=== PATIENT | male | born 1985 | race Caucasian/White ===

== ENCOUNTER 2017-05-16 10:02 | Inpatient (IN) | payer OTHER ==
[2017-05-16 10:45] VITALS: BMI 23.2
--- NOTE | 2017-05-16 13:32 | HP ---
CIWA Score - CIWA Score Nausea/Vomitin-Mild Nausea/No Vomiting Muscle Tremors: 4-Moderate,w/Arms Extend Anxiety: 4-Mod. Anxious/Guarded Agitation: 4-Moderately Restless Paroxysmal Sweats: 1-Minimal Palms Moist Orientation: 1-Uncertain about Date Tacttile Disturbances: 1-Very Mild Itch/Numbness Auditory Disturbances: 0-None Visual Disturbances: 0-None Headache: 2-Mild CIWA-Ar Total Score: 18 Admission ROS S - HPI Chief Complaint: withdrawal sx Allergies/Adverse Reactions: Allergies Allergy/AdvReac Type Severity Reaction Status Date / Time haloperidol [From Haldol] Allergy Severe Difficulty Verified 05/16/17 12:16 Breathing phenytoin [From Dilantin] Allergy Severe Difficulty Verified 05/16/17 12:16 Breathing History of Present Illness: 31 years old male with long history of alcohol nicotine dependence has seizure and bipolar ii is admitted to detox Exam Limitations: No Limitations - Ebola screening Have you traveled outside of the country in the last 21 days: No Have you had contact with anyone from an Ebola affected area: No Have you been sick,other than usual withdrawal symptoms: No Do you have a fever: No - Review of Systems Constitutional: Loss of Appetite, Changes in sleep, Unintentional Wgt. Loss, Unexplained wgt Loss EENT: reports: No Symptoms Reported Respiratory: reports: No Symptoms reported Cardiac: reports: No Symptoms Reported GI: reports: Nausea, Poor Appetite, Poor Fluid Intake, Abdominal cramping : reports: No Symptoms Reported Musculoskeletal: reports: No Symptoms Reported Integumentary: reports: No Symptoms Reported Neuro: reports: Seizure (since child last seizure a week ago), Tremors Endocrine: reports: No Symptoms Reported Hematology: reports: No Symptoms Reported Psychiatric: reports: Judgement Intact, Anxious, Depressed Other Systems: Reviewed and Negative Patient History - Patient Medical History Hx Anemia: No Hx Asthma: No Hx Chronic Obstructive Pulmonary Disease (COPD): No Hx Cancer: No Hx Cardiac Disorders: No Hx Congestive Heart Failure: No Hx Hypertension: No Hx Hypercholesterolemia: No Hx Pacemaker: No HX Cerebrovascular Accident: No Hx Seizures: Yes (alcohol related-last episode was a week ago) Hx Dementia: No Hx Diabetes: No Hx Gastrointestinal Disorders: No Hx Liver Disease: No Hx Genitourinary Disorders: No Hx Sexually Transmitted Disorders: No Hx Renal Disease (ESRD): No Hx Thyroid Disease: No Hx Human Immunodeficiency Virus (HIV): No Hx Hepatitis C: Yes Hx Depression: No Hx Suicide Attempt: Yes (cut left wrist at age 13) Hx Bipolar Disorder: Yes Hx Schizophrenia: No - Patient Surgical History Past Surgical History: No Hx Neurologic Surgery: No Hx Cataract Extraction: No Hx Cardiac Surgery: No Hx Lung Surgery: No Hx Breast Surgery: No Hx Breast Biopsy: No Hx Abdominal Surgery: No Hx Appendectomy: No Hx Cholecystectomy: No Hx Genitourinary Surgery: No Hx Orthopedic Surgery: No - PPD History Previous Implant?: Yes Documented Results: Negative w/o proof Implanted On Prior [facility] Admission?: No PPD to be Administered?: Yes - Smoking Cessation Smoking history: Current every day smoker Have you smoked in the past 12 months: Yes Aproximately how many cigarettes per day: 3 Cigars Per Day: 0 Hx Chewing Tobacco Use: No Initiated information on smoking cessation: Yes 'Breaking Loose' booklet given: 05/16/17 - Substance & Tx. History Hx Alcohol Use: Yes Hx Substance Use: No Hx Substance Use Treatment: Yes (2015) - Substances Abused Alcohol-vodka Route: Oral Frequency: Daily Amount used: 3 pts. Age of first use: 13 Date of Last Use: 05/16/17 Admission Physical Exam BHS - Vital Signs Vital Signs: Vital Signs - 24 hr 05/16/17 10:43 Temperature 97 F L Pulse Rate 106 H Respiratory 20 Rate Blood Pressure 144/69 - Physical General Appearance: Yes: Appropriately Dressed, Moderate Distress, Alcohol on Breath, Thin, Tremorous, Irritable, Sweating, Anxious HEENTM: Yes: Hearing grossly Normal, Normal ENT Inspection, Normocephalic, Normal Voice Respiratory: Yes: Chest Non-Tender, Lungs Clear, Normal Breath Sounds, No Respiratory Distress, No Accessory Muscle Use Neck: Yes: Supple, Trachea in good position Breast: Yes: Breasts Symetrical, No Discharge Cardiology: Yes: Regular Rhythm, S1, S2, Tachycardia Abdominal: Yes: Normal Bowel Sounds, Non Tender, Soft Genitourinary: Yes: Within Normal Limits Back: Yes: Normal Inspection Musculoskeletal: Yes: full range of Motion, Gait Steady Extremities: Yes: Normal Inspection, Normal Range of Motion, Non-Tender, Tremors Neurological: Yes: Alert, Motor Strength 5/5, Normal Response, Depressed Affect Integumentary: Yes: Warm Lymphatic: Yes: Within Normal Limits - Diagnostic (1) Alcohol dependence with uncomplicated withdrawal Current Visit: Yes Status: Acute (2) Encounter for monitoring Suboxone maintenance therapy Current Visit: Yes Status: Chronic Comment: 8 mg in am 6 mg in hs (3) Hepatitis C Current Visit: Yes Status: Chronic Qualifiers: Viral hepatitis chronicity: carrier Qualified Code(s): B18.2 - Chronic viral hepatitis C (4) Weight loss Current Visit: Yes Status: Acute (5) Seizure Current Visit: Yes Status: Chronic (6) Bipolar II disorder Current Visit: Yes Status: Suspected (7) Nicotine dependence Current Visit: Yes Status: Acute Qualifiers: Nicotine product type: cigarettes Substance use status: in withdrawal Qualified Code(s): F17.213 - Nicotine dependence, cigarettes, with withdrawal Cleared for Admission [facility] - Detox or Rehab [facility] Level of Care: Medically Managed Detox Regimen/Protocol: Valium S Breath Alcohol Content Breath Alcohol Content: 0.297 Urine Drug Screen - Results Drug Screen Negative: Yes
[2017-05-16] MEDS ORDERED: IBUPROFEN 400 MG TABLET (FP) PO PRN (13:40)
[2017-05-16] MEDS ORDERED: MAG HYDROX/AL HYDROX/SIMETH 30 ML UNIT-DOSE CUP PO PRN (13:40)
[2017-05-16] MEDS ORDERED: NICOTINE 14 MG/24 HOURS TOPICAL PATCH TD PRN (13:40)
[2017-05-16] MEDS ORDERED: P-EPHED 60MG/TRIPROLIDI 2.5MG TABLET PO PRN (13:40)
[2017-05-16] MEDS ORDERED: NICOTINE POLACRILEX 2 MG GUM BUC PRN (13:40)
[2017-05-16] MEDS ORDERED: MENTHOL/PHENOL 1 EACH UD MM PRN (13:40)
[2017-05-16] MEDS ORDERED: LOPERAMIDE HCL 2 MG CAPSULE PO PRN (13:40)
[2017-05-16] MEDS ORDERED: guaiFENesin/D-METHORPHAN HB 10 ML UNIT-DOSE CUPS PO PRN (13:40)
[2017-05-16] MEDS ORDERED: ACETAMINOPHEN 325 MG TABLET (FP) PO PRN (13:40)
[2017-05-16] MEDS ORDERED: MAGNESIUM HYDROX 2400MG/30ML ORAL SUSPENSION 30 ML CUP PO PRN (13:40)
[2017-05-16] MEDS ORDERED: MAGNESIUM CITRATE 300 ML BOTTLE PO PRN (13:40)
[2017-05-16] MEDS ORDERED: diazePAM 5 MG TABLET PO ONE (14:45)
--- NOTE | 2017-05-16 16:56 | CONSULT ---
[facility] Psychiatric Consult - Data Date of interview: 05/16/17 Admission source: [facility] Identifying data: Pt. is a 40 year old male, engaged, without kids, unemployed, and currently homeless. This is patient's first admission to [facility]. Pt. admitted to detox for alcohol dependence. Substance Abuse History: Following information confirmed with Mr. Mosher: Smoking Cessation. Smoking history: Current every day smoker. Have you smoked in the past 12 months: Yes. Aproximately how many cigarettes per day: 3. Cigars Per Day: 0. Hx Chewing Tobacco Use: No. Initiated information on smoking cessation: Yes. 'Breaking Loose' booklet given: 05/16/17. - Substance & Tx. History. Hx Alcohol Use: Yes. Hx Substance Use: No. Hx Substance Use Treatment: Yes (2016). - Substances Abused. Alcohol-vodka. Route: Oral. Frequency: Daily. Amount used: 3 pts. Age of first use: 13. Date of Last Use : 05/16/17 Medical History: Seizures ( last years r/t ETOH) Psychiatric History: Patient's first encounter with a psychiatrist was at 11 years of age due to behavior problems. Pt. reports multiple psychiatric hospitalizations as an adult, most recently hospitalized at [facility] on 05/2017 for binge drinking as a suicide attempt. Pt. has also been hospitalized at [facility] (2017). Outpatient care is provided by [facility] in [place], [place]. Reports a diagnosis of Bipolar disorder and is prescribed Lexapro 10mg PO daily + gapabentin 600mg BID(for mood and seizures). Pt. reports several suicide attempts all by binge drinking. Pt. denies suicidal and homicidal ideation. Physical/Sexual Abuse/Trauma History: Denies. Mental Status Exam - Mental Status Exam Alert and Oriented to: Time, Place, Person Cognitive Function: Good Patient Appearance: Well Groomed Mood: Hopeful Affect: Appropriate Patient Behavior: Cooperative Speech Pattern: Appropriate Voice Loudness: Normal Thought Process: Goal Oriented Thought Disorder: Not Present Hallucinations: Denies Suicidal Ideation: Denies Homicidal Ideation: Denies Insight/Judgement: Poor Sleep: Poorly Appetite: Fair Muscle strength/Tone: Normal Gait/Station: Normal Psychiatric Findings - Problem List ([place] 1, 2,3) (1) Insomnia Current Visit: Yes Status: Acute (2) Alcohol dependence with uncomplicated withdrawal Current Visit: Yes Status: Acute (3) Substance induced mood disorder Current Visit: Yes Status: Acute (4) Bipolar II disorder Current Visit: No Status: Suspected Comment: Reports history of Bipolar disorder. - Initial Treatment Plan Initial Treatment Plan: Psychoeducation provided. Detoxification provided. Lexapro 10mg PO daily + Ambien 10mg qhs prn ordered for insomnia. Benefits and side effects (sleep walking) discussed. Verbal consent given. Will continue to monitor.
[2017-05-16 17:17] LABS: URINE APPEARANCE CLEAR; URINE BILIRUBIN NEGATIVE (NEGATIVE); URINE BLOOD NEGATIVE (NEGATIVE); URINE COLOR STRAW; URINE GLUCOSE (UA) NEGATIVE (NEGATIVE); URINE KETONE NEGATIVE (NEGATIVE); URINE LEUK ESTERASE NEGATIVE (NEGATIVE); URINE NITRITE NEGATIVE (NEGATIVE); URINE PROTEIN NEGATIVE (NEGATIVE); URINE UROBILINOGEN NEGATIVE mg/dL (0.2-1.0)
[2017-05-16] MEDS: diazePAM 5 MG TABLET PO PRN (17:18)
[2017-05-16] MEDS: diazePAM 5 MG TABLET PO SCH (22:32)
[2017-05-16] MEDS: ZOLPIDEM TARTRATE 10 MG TABLET (PARK CARE ONLY) PO PRN (22:32)
[2017-05-16] MEDS: GABAPENTIN 300 MG CAPSULE (FP) PO SCH (22:32)
[2017-05-16] MEDS: THIAMINE HCL 100 MG TABLET (FP) PO SCH (22:32)
[2017-05-16] MEDS: BUPRENORPHINE/NALOXONE 2 MG/0.5 MG FILM PACKET SL SCH (22:33)
[2017-05-17] MEDS: diazePAM 5 MG TABLET PO SCH ×3 (05:51→22:43)
[2017-05-17] MEDS ORDERED: BUPRENORPHINE/NALOXONE 8 MG/2 MG FILM PACKET SL SCH (10:00)
[2017-05-17] MEDS ORDERED: BUPRENORPHINE/NALOXONE 2 MG/0.5 MG FILM PACKET SL SCH (10:00)
[2017-05-17 10:13] LABS: HEMATOCRIT 39.5 % (35.4-49); MCHC 32.8 g/dl (32.0-35.9); MEAN CELL VOLUME 91.3 fl (80-96); MEAN PLT VOLUME 8.2 fl (7.5-11.1); PLATELET COUNT 243 K/MM3 (134-434); RBC 4.32 M/mm3 (4.00-5.60); RDW 15.7 % (11.9-15.9); WHITE BLOOD COUNT 4.4 K/mm3 (4.0-10.0)
[2017-05-17 10:21] LABS: ALBUMIN 3.8 g/dl (3.4-5.0); ALK PHOS 84 U/L (45-117); ANION GAP 9 (8-16); BILIRUBIN,TOTAL 0.4 mg/dL (0.2-1.0); BLOOD UREA NITROGEN 8 mg/dL (7-18); CALCIUM 8.1 mg/dL (8.5-10.1); CHLORIDE 111 mmol/L (98-107); CO2 25 mmol/L (21-32); CREATININE 0.6 mg/dL (0.7-1.3); GLUCOSE,RANDOM 97 mg/dL (74-106); SGOT/AST 42 U/L (15-37); SGPT/ALT 41 U/L (12-78); SODIUM 145 mmol/L (136-145); TOT PROT 7.5 g/dl (6.4-8.2)
[2017-05-17] MEDS: diazePAM 5 MG TABLET PO PRN (10:32)
[2017-05-17] MEDS: PRENATAL VITAMINS W/ FOLIC ACID TABLET (FP) PO SCH (10:33)
[2017-05-17] MEDS: ESCITALOPRAM OXALATE 10 MG TABLET (FP) PO SCH (10:33)
[2017-05-17] MEDS: GABAPENTIN 300 MG CAPSULE (FP) PO SCH ×2 (10:33→22:43)
[2017-05-17] MEDS: BUPRENORPHINE/NALOXONE 8 MG/2 MG FILM PACKET SL SCH (10:36)
[2017-05-17] MEDS ORDERED: COLLOIDAL OATMEAL 1 BAR EACH TP PRN (10:46)
--- NOTE | 2017-05-17 10:47 | HP ---
CIWA Score - CIWA Score Nausea/Vomitin-Mild Nausea/No Vomiting Muscle Tremors: 4-Moderate,w/Arms Extend Anxiety: 4-Mod. Anxious/Guarded Agitation: 4-Moderately Restless Paroxysmal Sweats: 1-Minimal Palms Moist Orientation: 1-Uncertain about Date Tacttile Disturbances: 1-Very Mild Itch/Numbness Auditory Disturbances: 0-None Visual Disturbances: 0-None Headache: 2-Mild CIWA-Ar Total Score: 18 Admission ROS BHS - HPI Allergies/Adverse Reactions: Allergies Allergy/AdvReac Type Severity Reaction Status Date / Time haloperidol [From Haldol] Allergy Severe Difficulty Verified 05/16/17 12:16 Breathing phenytoin [From Dilantin] Allergy Severe Difficulty Verified 05/16/17 12:16 Breathing - Ebola screening Have you traveled outside of the country in the last 21 days: No Have you had contact with anyone from an Ebola affected area: No Have you been sick,other than usual withdrawal symptoms: No Do you have a fever: No - Review of Systems Respiratory: reports: No Symptoms reported. denies: See HPI GI: reports: No Symptoms Reported, See HPI, Abdominal Distended, Abd. Pain w/ defecation, Blood Streaked Bowels, Constipated, Diarrhea, Difficulty Swallowing , Nausea, Poor Appetite, Poor Fluid Intake, Rectal Bleeding, Vomiting, Indigestion, Abdominal cramping, Tarry Stools, Other : reports: No Symptoms Reported, See HPI, Burning, Dysuria, Discharge, Frequency, Flank Pain, Hematuria, Incontinence, Pain, Testicular Swelling, Lesions, Testicular Pain, Other. denies: Urgency, Testicular Mass Musculoskeletal: denies: No Symptoms Reported, See HPI, Back Pain, Gout, Joint Pain, Joint Swelling, Muscle Pain, Muscle Weakness, Neck Pain, Joint Stiffness, Other Neuro: reports: No Symptoms reported (mj n i), Headache Patient History - Patient Medical History Hx Anemia: No Hx Asthma: No Hx Chronic Obstructive Pulmonary Disease (COPD): No Hx Cancer: No Hx Cardiac Disorders: No Hx Congestive Heart Failure: No Hx Hypertension: No Hx Hypercholesterolemia: No Hx Pacemaker: No HX Cerebrovascular Accident: No Hx Seizures: Yes (alcohol related-last episode was a week ago) Hx Dementia: No Hx Diabetes: No Hx Gastrointestinal Disorders: No Hx Liver Disease: No Hx Genitourinary Disorders: No Hx Sexually Transmitted Disorders: No Hx Renal Disease (ESRD): No Hx Thyroid Disease: No Hx Human Immunodeficiency Virus (HIV): No Hx Hepatitis C: Yes Hx Depression: No Hx Suicide Attempt: Yes (cut left wrist at age 13) Hx Bipolar Disorder: Yes Hx Schizophrenia: No - Patient Surgical History Past Surgical History: No Hx Neurologic Surgery: No Hx Cataract Extraction: No Hx Cardiac Surgery: No Hx Lung Surgery: No Hx Breast Surgery: No Hx Breast Biopsy: No Hx Abdominal Surgery: No Hx Appendectomy: No Hx Cholecystectomy: No Hx Genitourinary Surgery: No Hx Section: No Hx Orthopedic Surgery: No Anesthesia Reaction: No - PPD History Previous Implant?: Yes Documented Results: Negative w/o proof Implanted On Prior [facility] Admission?: No Date: 05/18/17 - Smoking Cessation Smoking history: Current every day smoker Have you smoked in the past 12 months: Yes Aproximately how many cigarettes per day: 3 Cigars Per Day: 0 Hx Chewing Tobacco Use: No Initiated information on smoking cessation: Yes - Substances Abused Alcohol-vodka Route: Oral Frequency: Daily Amount used: 3 pts. Age of first use: 13 Date of Last Use: 05/16/17 Admission Physical Exam BHS - Vital Signs Vital Signs: Vital Signs - 24 hr 05/16/17 05/16/17 05/16/17 10:43 15:58 16:00 Temperature 97 F L Pulse Rate 106 H 99 H 99 H Respiratory 20 18 18 Rate Blood Pressure 144/69 05/16/17 05/16/17 05/17/17 18:05 23:20 00:30 Temperature 98.1 F 98.6 F Pulse Rate 115 H 113 H Respiratory 18 18 18 Rate Blood Pressure 104/61 125/81 05/17/17 05/17/17 05/17/17 01:00 01:30 02:00 Temperature Pulse Rate 103 H 101 H 100 H Respiratory 20 21 20 Rate Blood Pressure 05/17/17 05/17/17 05/17/17 02:30 03:00 03:30 Temperature Pulse Rate 102 H 104 H 102 H Respiratory 20 20 17 Rate Blood Pressure 05/17/17 05/17/17 05/17/17 04:00 04:30 05:00 Temperature Pulse Rate 97 H 91 H 86 Respiratory 19 18 19 Rate Blood Pressure 05/17/17 05/17/17 05/17/17 05:30 06:00 06:25 Temperature 97.0 F L Pulse Rate 82 79 82 Respiratory 18 19 Rate Blood Pressure 106/65 05/17/17 05/17/17 05/17/17 06:30 09:00 09:30 Temperature Pulse Rate 80 100 H 96 H Respiratory 18 18 Rate Blood Pressure 05/17/17 05/17/17 09:31 10:00 Temperature 98 F Pulse Rate 96 H 95 H Respiratory 18 18 Rate Blood Pressure 133/85 BHS Breath Alcohol Content Breath Alcohol Content: 0.267 Urine Drug Screen - Results Drug Screen Negative: Yes
--- NOTE | 2017-05-17 13:00 | PN ---
[facility] Progress Note Note: Psychiatry Attending's note : Asked for re-consult. By PILO Reeves. Concern : Auditory hallucinations. Met with patient. " Surprised " to be engaged by psychiatrist. " I am fine. I have nothing to discuss with psychiatrits." Mr Mosher declines psychiatric intervention.
--- NOTE | 2017-05-17 14:53 | PN ---
[facility] CIWA - CIWA Score Nausea/Vomitin-No Nausea/No Vomiting Muscle Tremors: 3 Anxiety: 4-Mod. Anxious/Guarded Agitation: 3 Paroxysmal Sweats: 3 Orientation: 0-Oriented Tacttile Disturbances: 3-Moderate Itch/Numb/Burn Auditory Disturbances: 0-None Visual Disturbances: 2-Mild Sensitivity Headache: 0-None Present CIWA-Ar Total Score: 18 BHS Progress Note (SOAP) Subjective: Fatigue, Body Aches, Tremors, Sweating. Objective: PATIENT A & O X 3, OBSERVED AMBULATING ON UNIT. NO ACUTE DISTRESS. PATIENT REPORTS HISTORY OF "HEARING VOICES," WHEN DETOXING/WITHDRAWING. HOWEVER , PATIENT DENIES COMMAND AUDITORY HALLUCINATIONS. PSYCH CONSULT ORDERED. 05/17/17 14:49 Vital Signs Temperature 98.2 F 05/17/17 13:18 Pulse Rate 95 H 05/17/17 13:18 Respiratory Rate 18 05/17/17 13:18 Blood Pressure 145/86 05/17/17 13:18 O2 Sat by Pulse Oximetry (%) Laboratory Tests 05/16/17 05/16/17 05/17/17 12:00 14:00 06:00 WBC 4.4 RBC 4.32 Hgb 13.0 Hct 39.5 MCV 91.3 MCH 30.0 MCHC 32.8 RDW 15.7 Plt Count 243 MPV 8.2 Sodium Potassium Chloride Carbon Dioxide Anion Gap BUN Creatinine Creat Clearance w eGFR Random Glucose Calcium Total Bilirubin AST ALT Alkaline Phosphatase Total Protein Albumin Urine Color Straw Urine Appearance Clear Urine pH 5.0 Ur Specific [place] 1.012 Urine Protein Negative Urine Glucose (UA) Negative Urine Ketones Negative Urine Blood Negative Urine Nitrite Negative Urine Bilirubin Negative Urine Urobilinogen Negative Ur Leukocyte Esterase Negative RPR Titer HIV 1&2 Antibody Screen Negative HIV P24 Antigen Negative 05/17/17 05/17/17 06:00 06:00 WBC RBC Hgb Hct MCV MCH MCHC RDW Plt Count MPV Sodium 145 Potassium 4.0 Chloride 111 H Carbon Dioxide 25 Anion Gap 9 BUN 8 Creatinine 0.6 L Creat Clearance w eGFR > 60 Random Glucose 97 Calcium 8.1 L Total Bilirubin 0.4 AST 42 H ALT 41 Alkaline Phosphatase 84 Total Protein 7.5 Albumin 3.8 Urine Color Urine Appearance Urine pH Ur Specific [place] Urine Protein Urine Glucose (UA) Urine Ketones Urine Blood Urine Nitrite Urine Bilirubin Urine Urobilinogen Ur Leukocyte Esterase RPR Titer Nonreactive HIV 1&2 Antibody Screen HIV P24 Antigen LABS NOTED. 05/17/17 14:50 Assessment: 05/17/17 14:49 WITHDRAWAL SYMPTOMS. Plan: CONTINUE DETOX. INCREASE DAILY PO FLUID INTAKE. PATIENT ADVISED TO FOLLOW-UP WITH [facility]PER AT '[facility]' ([facility] [place] [place]) AFTER DISCHARGE FROM DETOX AND FOR MEDICAL EVALUATION OF HISTORY OF SEIZURES. PATIENT VERBALIZED UNDERSTANDING OF RECOMMENDATION.
--- NOTE | 2017-05-17 15:13 | EKG ---
Test Reason : Blood Pressure : / mmHG Vent. Rate : 099 BPM Atrial Rate : 099 BPM P-R Int : 142 ms QRS Dur : 092 ms QT Int : 332 ms P-R-T Axes : 052 064 040 degrees QTc Int : 426 ms NORMAL SINUS RHYTHM NORMAL ECG NO PREVIOUS ECGS AVAILABLE Confirmed by GRAHAM MOTT MD ([id number]) on 05/17/2017 3:12:27 PM Referred By: Confirmed By:GRAHAM MOTT MD
[2017-05-17] MEDS: THIAMINE HCL 100 MG TABLET (FP) PO SCH (22:43)
[2017-05-17] MEDS: BUPRENORPHINE/NALOXONE 2 MG/0.5 MG FILM PACKET SL SCH (22:44)
[2017-05-17] MEDS: ZOLPIDEM TARTRATE 10 MG TABLET (PARK CARE ONLY) PO PRN (22:47)
[2017-05-18] MEDS: diazePAM 5 MG TABLET PO PRN (08:32)
[2017-05-18] MEDS: diazePAM 5 MG TABLET PO SCH ×2 (10:11→22:19)
[2017-05-18] MEDS: ESCITALOPRAM OXALATE 10 MG TABLET (FP) PO SCH (10:11)
[2017-05-18] MEDS: PRENATAL VITAMINS W/ FOLIC ACID TABLET (FP) PO SCH (10:11)
[2017-05-18] MEDS: GABAPENTIN 300 MG CAPSULE (FP) PO SCH ×2 (10:11→22:19)
[2017-05-18] MEDS: BUPRENORPHINE/NALOXONE 8 MG/2 MG FILM PACKET SL SCH (10:13)
--- NOTE | 2017-05-18 16:00 | PN ---
[facility] CIWA - CIWA Score Nausea/Vomitin-No Nausea/No Vomiting Muscle Tremors: 3 Anxiety: 4-Mod. Anxious/Guarded Agitation: 3 Paroxysmal Sweats: 3 Orientation: 0-Oriented Tacttile Disturbances: 1-Very Mild Itch/Numbness Auditory Disturbances: 0-None Visual Disturbances: 2-Mild Sensitivity Headache: 0-None Present CIWA-Ar Total Score: 16 BHS Progress Note (SOAP) Subjective: Fatigue, Tremors, Body Aches, Sweating. Patient denies hearing any voices at time of assessment. Objective: PATIENT A & O X 3, OBSERVED AMBULATING ON UNIT. NO ACUTE DISTRESS. 05/18/17 15:59 Vital Signs Temperature 97.6 F 05/18/17 10:44 Pulse Rate 86 05/18/17 10:44 Respiratory Rate 18 05/18/17 10:44 Blood Pressure 133/79 05/18/17 10:44 O2 Sat by Pulse Oximetry (%) Laboratory Tests 05/16/17 05/16/17 05/17/17 12:00 14:00 06:00 WBC 4.4 RBC 4.32 Hgb 13.0 Hct 39.5 MCV 91.3 MCH 30.0 MCHC 32.8 RDW 15.7 Plt Count 243 MPV 8.2 Sodium Potassium Chloride Carbon Dioxide Anion Gap BUN Creatinine Creat Clearance w eGFR Random Glucose Calcium Total Bilirubin AST ALT Alkaline Phosphatase Total Protein Albumin Urine Color Straw Urine Appearance Clear Urine pH 5.0 Ur Specific [place] 1.012 Urine Protein Negative Urine Glucose (UA) Negative Urine Ketones Negative Urine Blood Negative Urine Nitrite Negative Urine Bilirubin Negative Urine Urobilinogen Negative Ur Leukocyte Esterase Negative RPR Titer HIV 1&2 Antibody Screen Negative HIV P24 Antigen Negative 05/17/17 05/17/17 06:00 06:00 WBC RBC Hgb Hct MCV MCH MCHC RDW Plt Count MPV Sodium 145 Potassium 4.0 Chloride 111 H Carbon Dioxide 25 Anion Gap 9 BUN 8 Creatinine 0.6 L Creat Clearance w eGFR > 60 Random Glucose 97 Calcium 8.1 L Total Bilirubin 0.4 AST 42 H ALT 41 Alkaline Phosphatase 84 Total Protein 7.5 Albumin 3.8 Urine Color Urine Appearance Urine pH Ur Specific [place] Urine Protein Urine Glucose (UA) Urine Ketones Urine Blood Urine Nitrite Urine Bilirubin Urine Urobilinogen Ur Leukocyte Esterase RPR Titer Nonreactive HIV 1&2 Antibody Screen HIV P24 Antigen LABS NOTED. Assessment: 05/18/17 15:59 WITHDRAWAL SYMPTOMS. Plan: CONTINUE DETOX. INCREASE DAILY PO FLUID INTAKE.
[2017-05-18] MEDS: ZOLPIDEM TARTRATE 10 MG TABLET (PARK CARE ONLY) PO PRN (22:19)
[2017-05-18] MEDS: THIAMINE HCL 100 MG TABLET (FP) PO SCH (22:19)
[2017-05-18] MEDS: BUPRENORPHINE/NALOXONE 2 MG/0.5 MG FILM PACKET SL SCH (22:19)
[2017-05-19] MEDS: diazePAM 5 MG TABLET PO PRN ×2 (00:54→13:02)
[2017-05-19] MEDS ORDERED: hydrOXYzine PAMOATE 50 MG CAPSULE (FP) PO ONE (02:04)
[2017-05-19] MEDS ORDERED: hydrOXYzine PAMOATE 25 MG CAPSULE (FP) PO ONE (02:09)
[2017-05-19] MEDS: BUPRENORPHINE/NALOXONE 8 MG/2 MG FILM PACKET SL SCH (10:17)
[2017-05-19] MEDS: GABAPENTIN 300 MG CAPSULE (FP) PO SCH ×2 (10:17→22:35)
[2017-05-19] MEDS: diazePAM 5 MG TABLET PO SCH ×2 (10:17→22:36)
[2017-05-19] MEDS: ESCITALOPRAM OXALATE 10 MG TABLET (FP) PO SCH (10:18)
[2017-05-19] MEDS: PRENATAL VITAMINS W/ FOLIC ACID TABLET (FP) PO SCH (10:18)
--- NOTE | 2017-05-19 13:23 | PN ---
[facility] Progress Note (SOAP) Subjective: Depressed x 3 months (patient stated that life makes him depressed), he denies SI, HI, AH, VH; interrupted sleep, chills, sweating Objective: 05/19/17 13:20 Last Vital Signs Temp Pulse Resp BP Pulse Ox 96.3 F L 90 18 111/75 05/19/17 09:29 05/19/17 09:29 05/19/17 09:29 05/19/17 09:29 Laboratory Tests 05/16/17 05/16/17 05/17/17 12:00 14:00 06:00 WBC 4.4 RBC 4.32 Hgb 13.0 Hct 39.5 MCV 91.3 MCH 30.0 MCHC 32.8 RDW 15.7 Plt Count 243 MPV 8.2 Sodium Potassium Chloride Carbon Dioxide Anion Gap BUN Creatinine Creat Clearance w eGFR Random Glucose Calcium Total Bilirubin AST ALT Alkaline Phosphatase Total Protein Albumin Urine Color Straw Urine Appearance Clear Urine pH 5.0 Ur Specific [place] 1.012 Urine Protein Negative Urine Glucose (UA) Negative Urine Ketones Negative Urine Blood Negative Urine Nitrite Negative Urine Bilirubin Negative Urine Urobilinogen Negative Ur Leukocyte Esterase Negative RPR Titer HIV 1&2 Antibody Screen Negative HIV P24 Antigen Negative 05/17/17 05/17/17 06:00 06:00 WBC RBC Hgb Hct MCV MCH MCHC RDW Plt Count MPV Sodium 145 Potassium 4.0 Chloride 111 H Carbon Dioxide 25 Anion Gap 9 BUN 8 Creatinine 0.6 L Creat Clearance w eGFR > 60 Random Glucose 97 Calcium 8.1 L Total Bilirubin 0.4 AST 42 H ALT 41 Alkaline Phosphatase 84 Total Protein 7.5 Albumin 3.8 Urine Color Urine Appearance Urine pH Ur Specific [place] Urine Protein Urine Glucose (UA) Urine Ketones Urine Blood Urine Nitrite Urine Bilirubin Urine Urobilinogen Ur Leukocyte Esterase RPR Titer Nonreactive HIV 1&2 Antibody Screen HIV P24 Antigen Labs reviewed Assessment: 05/19/17 13:21 Withdrawal symptoms c/o feeling depressed Plan: Continue detox Encouraged PO hydration (water) Depression, acute: psychiatrist consult
[2017-05-19] MEDS: THIAMINE HCL 100 MG TABLET (FP) PO SCH (22:35)
[2017-05-19] MEDS: BUPRENORPHINE/NALOXONE 2 MG/0.5 MG FILM PACKET SL SCH (22:35)
[2017-05-20] MEDS ORDERED: diazePAM 5 MG TABLET PO SCH (10:00)
[2017-05-20] MEDS: PRENATAL VITAMINS W/ FOLIC ACID TABLET (FP) PO SCH (10:33)
[2017-05-20] MEDS: ESCITALOPRAM OXALATE 10 MG TABLET (FP) PO SCH (10:33)
[2017-05-20] MEDS: GABAPENTIN 300 MG CAPSULE (FP) PO SCH (10:33)
[2017-05-20] MEDS: BUPRENORPHINE/NALOXONE 8 MG/2 MG FILM PACKET SL SCH (10:52)
--- NOTE | 2017-05-20 11:08 | PN ---
S Progress Note (SOAP) Subjective: LAST DAY OF MEDICATION. PER COUNSELOR FRANSISCO BASSETT, PT IS BEING SCHEDULED FOR REHAB FOR TOMORROW. Objective: 05/20/17 11:07 Vital Signs Temperature 96.0 F L 05/20/17 09:08 Pulse Rate 90 05/20/17 09:08 Respiratory Rate 18 05/20/17 09:08 Blood Pressure 113/73 05/20/17 09:08 O2 Sat by Pulse Oximetry (%) Laboratory Last Values WBC 4.4 K/mm3 (4.0-10.0) 05/17/17 06:00 RBC 4.32 M/mm3 (4.00-5.60) 05/17/17 06:00 Hgb 13.0 GM/dL (11.7-16.9) 05/17/17 06:00 Hct 39.5 % (35.4-49) 05/17/17 06:00 MCV 91.3 fl (80-96) 05/17/17 06:00 MCH 30.0 pg (25.7-33.7) 05/17/17 06:00 MCHC 32.8 g/dl (32.0-35.9) 05/17/17 06:00 RDW 15.7 % (11.9-15.9) 05/17/17 06:00 Plt Count 243 K/MM3 (134-434) 05/17/17 06:00 MPV 8.2 fl (7.5-11.1) 05/17/17 06:00 Sodium 145 mmol/L (136-145) 05/17/17 06:00 Potassium 4.0 mmol/L (3.5-5.1) 05/17/17 06:00 Chloride 111 mmol/L (98-107) H 05/17/17 06:00 Carbon Dioxide 25 mmol/L (21-32) 05/17/17 06:00 Anion Gap 9 (8-16) 05/17/17 06:00 BUN 8 mg/dL (7-18) 05/17/17 06:00 Creatinine 0.6 mg/dL (0.7-1.3) L 05/17/17 06:00 Creat Clearance w eGFR > 60 (>60) 05/17/17 06:00 Random Glucose 97 mg/dL (74-106) 05/17/17 06:00 Calcium 8.1 mg/dL (8.5-10.1) L 05/17/17 06:00 Total Bilirubin 0.4 mg/dL (0.2-1.0) 05/17/17 06:00 AST 42 U/L (15-37) H 05/17/17 06:00 ALT 41 U/L (12-78) 05/17/17 06:00 Alkaline Phosphatase 84 U/L (45-117) 05/17/17 06:00 Total Protein 7.5 g/dl (6.4-8.2) 05/17/17 06:00 Albumin 3.8 g/dl (3.4-5.0) 05/17/17 06:00 Urine Color Straw 05/16/17 14:00 Urine Appearance Clear 05/16/17 14:00 Urine pH 5.0 (5.0-8.0) 05/16/17 14:00 Ur Specific [place] 1.012 (1.001-1.035) 05/16/17 14:00 Urine Protein Negative (NEGATIVE) 05/16/17 14:00 Urine Glucose (UA) Negative (NEGATIVE) 05/16/17 14:00 Urine Ketones Negative (NEGATIVE) 05/16/17 14:00 Urine Blood Negative (NEGATIVE) 05/16/17 14:00 Urine Nitrite Negative (NEGATIVE) 05/16/17 14:00 Urine Bilirubin Negative (NEGATIVE) 05/16/17 14:00 Urine Urobilinogen Negative mg/dL (0.2-1.0) 05/16/17 14:00 Ur Leukocyte Esterase Negative (NEGATIVE) 05/16/17 14:00 RPR Titer Nonreactive (NONREACTIVE) 05/17/17 06:00 HIV 1&2 Antibody Screen Negative 05/16/17 12:00 HIV P24 Antigen Negative 05/16/17 12:00 Assessment: 05/20/17 11:07 WITHDRAWAL SX Plan: D/C IN AM FOLLOW UP WITH REHAB AFTERCARE
--- NOTE | 2017-05-20 15:53 | DS ---
[facility] Detox Discharge Summary Admission Date: 05/16/17 Discharge Date: 05/20/17 - History Additional Comments: pt being discharged to [facility] rehab Pertinent Past History: Hep c - Physical Exam Results Vital Signs: Vital Signs Temperature 98.3 F 05/20/17 13:51 Pulse Rate 98 H 05/20/17 13:51 Respiratory Rate 20 05/20/17 13:51 Blood Pressure 118/70 05/20/17 13:51 O2 Sat by Pulse Oximetry (%) Pertinent Admission Physical Exam Findings: withdrawal sx - Treatment Patient has Accepted a Rehab Referral to: [facility] rehab - Medication Discharge Medications: Ambulatory Orders Buprenorphine/Naloxone [Suboxone 2Mg/0.5MG Sl Film -] 3 combo SL DAILY 05/16/17 Buprenorphine/Naloxone [Suboxone 8Mg/2Mg Sl Film -] 1 each SL DAILY 05/16/17 Gabapentin [Neurontin] 600 mg PO BID 05/16/17 - Diagnosis (1) Alcohol dependence with uncomplicated withdrawal Current Visit: Yes Status: Acute (2) Depression Current Visit: Yes Status: Acute (3) Insomnia Current Visit: Yes Status: Acute (4) Nicotine dependence Current Visit: Yes Status: Acute Qualifiers: Nicotine product type: cigarettes Substance use status: in withdrawal Qualified Code(s): F17.213 - Nicotine dependence, cigarettes, with withdrawal (5) Substance induced mood disorder Current Visit: Yes Status: Acute (6) Weight loss Current Visit: Yes Status: Acute (7) Bipolar II disorder Current Visit: Yes Status: Chronic (8) Encounter for monitoring Suboxone maintenance therapy Current Visit: Yes Status: Chronic (9) Hepatitis C Current Visit: Yes Status: Chronic Qualifiers: Viral hepatitis chronicity: carrier Qualified Code(s): B18.2 - Chronic viral hepatitis C (10) Seizure Current Visit: Yes Status: Suspected - AMA Did Patient Leave Against Medical Advice: No
[2017-05-20 17:25] VITALS: BP 100/58; PULSE 78; TEMP 98
== END 2017-05-20 18:06 | disposition other institution (70) | DRG 776 ==
LOC: YASAS 10:02 → Y3N 14:11
PROVIDERS: ADMIT Internal Medicine; ATTEND Internal Medicine
PROC: HZ2ZZZZ Detoxification Services for Substance Abuse Treatment (ICD-10-PCS; principal; 2017-05-16)
DX: F19.24 Other psychoactive substance dependence with psychoactive substance-induced mood disorder (principal); F31.81 Bipolar II disorder; B18.2 Chronic viral hepatitis C; R56.9 Unspecified convulsions; Z59.0 Homelessness
CPT/HCPCS: 36415; 80053; 81003; 85027; 86593; 87389; 93005; 93010

== ENCOUNTER 2017-05-23 00:51 | Emergency (ER) | payer OTHER ==
[2017-05-23 01:04] VITALS: TEMP 98.5; BMI 24.2
--- NOTE | 2017-05-23 01:12 | PDOC ---
History of Present Illness - General Chief Complaint: Seizure Stated Complaint: SEIZURES Time Seen by Provider: 05/23/17 00:54 - History of Present Illness Initial Comments: 05/23/17 01:11 Past History - Past Medical History Allergies/Adverse Reactions: Allergies Allergy/AdvReac Type Severity Reaction Status Date / Time haloperidol [From Haldol] Allergy Severe Difficulty Verified 05/16/17 12:16 Breathing phenytoin [From Dilantin] Allergy Severe Difficulty Verified 05/16/17 12:16 Breathing Home Medications: Ambulatory Orders Buprenorphine/Naloxone [Suboxone 2Mg/0.5MG Sl Film -] 3 combo SL DAILY 05/16/17 Buprenorphine/Naloxone [Suboxone 8Mg/2Mg Sl Film -] 1 each SL DAILY 05/16/17 Gabapentin [Neurontin] 600 mg PO BID 05/16/17 Anemia: No Asthma: No Cancer: No Cardiac Disorders: No CVA: No COPD: No CHF: No Dementia: No Diabetes: No GI Disorders: No Disorders: No HTN: No Hypercholesterolemia: No Kidney Stones: No Liver Disease: No Seizures: Yes (alcohol related-last episode was a week ago) Thyroid Disease: No Other medical history: seizure - Surgical History Abdominal Surgery: No Appendectomy: No Cardiac Surgery: No Cholecystectomy: No Lung Surgery: No Neurologic Surgery: No Orthopedic Surgery: No - Reproductive History Testicular Surgery: No - Suicide/Smoking/Psychosocial Hx Smoking History: Former smoker Have you smoked in the past 12 months: No Number of Cigarettes Smoked Daily: 3 If you are a former smoker, when did you quit?: 1 yr ago Cigars Per Day: 0 Information on smoking cessation initiated: No 'Breaking Loose' booklet given: 05/16/17 Hx Alcohol Use: No Drug/Substance Use Hx: No Hx Substance Use Treatment: Yes (2016) Review of Systems - Review of Systems Comments:: 05/23/17 01:12 GENERAL/CONSTITUTIONAL: No fever or chills. No weakness. HEAD, EYES, EARS, NOSE AND THROAT: No change in vision. No ear pain or discharge. No sore throat. CARDIOVASCULAR: No chest pain or shortness of breath RESPIRATORY: No cough, wheezing, or hemoptysis. GASTROINTESTINAL: No nausea, vomiting, diarrhea or constipation. GENITOURINARY: No dysuria, frequency, or change in urination. MUSCULOSKELETAL: No joint or muscle swelling or pain. No neck or back pain. SKIN: No rash NEUROLOGIC: No headache, vertigo, loss of consciousness, or change in strength/ sensation. ENDOCRINE: No increased thirst. No abnormal weight change HEMATOLOGIC/LYMPHATIC: No anemia, easy bleeding, or history of blood clots. ALLERGIC/IMMUNOLOGIC: No hives or skin allergy. *Physical Exam - Vital Signs Last Vital Signs Temp Pulse Resp BP Pulse Ox 98.5 F 94 H 19 115/64 98 05/23/17 00:59 05/23/17 00:59 05/23/17 00:59 05/23/17 00:59 05/23/17 00:59 - Physical Exam Comments: 05/23/17 01:12 GENERAL: Awake, alert, and fully oriented, in no acute distress HEAD: No signs of trauma, normocephalic, atraumatic EYES: PERRLA, EOMI, sclera anicteric, conjunctiva clear ENT: Auricles normal inspection, hearing grossly normal, nares patent, oropharynx clear without exudates. Moist mucosa NECK: Normal ROM, supple, no lymphadenopathy, JVD, or masses LUNGS: No distress, speaks full sentences, clear to auscultation bilaterally HEART: Regular rate and rhythm, normal S1 and S2, no murmurs, rubs or gallops, peripheral pulses normal and equal bilaterally. ABDOMEN: Soft, nontender, normoactive bowel sounds. No guarding, no rebound. No masses EXTREMITIES : Normal inspection, Normal range of motion, no edema. No clubbing or cyanosis. NEUROLOGICAL: Cranial nerves II through XII grossly intact. Normal speech, normal gait, no focal sensorimotor deficits SKIN: Warm, Dry, normal turgor, no rashes or lesions noted *DC/Admit/Observation/Transfer - Discharge Dispostion Condition at time of disposition: Stable - Referrals Referrals: Safia Gibbs MD [Primary Care Provider] - - Patient Instructions - Post Discharge Activity
--- NOTE | 2017-05-23 01:55 | PDOC ---
History of Present Illness - General Chief Complaint: Seizure Stated Complaint: SEIZURES Time Seen by Provider: 05/23/17 00:54 - History of Present Illness Initial Comments: 05/23/17 01:51 31 yo M with h/o homelessness, seizure disorder and cocaine, heroin, EtoH dependence whoarrives from 2 [facility] rehabilitation with fall s/p unwitnessed seizure. Pt. found on floor around 1200 PM. Per 2 [facility] pt. was reported to have 5 grand mal seizures from 8932-2461 PM this evening. Pt. recalls walking to kitchen and then recalls waking up on the floor around 1100 PM with fatigue, urinary incontinence, myalgias, and diffuse throbbing POOLE. Denies neck, back pain , tongue biting, or tooth avulsion. Denies N/V, F/C, vision changes, CP, SOB, abdominal pain, urinary complaints, diarrhea, constipation, lightheadedness, vertigo, weakness, sensory changes. Reports that last alcoholic beverage was 7 days ago. Last heroin use 3 years ago. Cocaine use 2-3 months ago. Tobacco use 2 -3 cigarettes per day. Pt. reports allergic reaction to multiple anticonvulsants including Dilantin, Keppra, and Topimax. Currently on Lexpro and Gabapentin for seizure disorder and mood stabilization. Patient reports he was intubated 2 weeks ago d/t uncontrolled seizure like activity. Past History - Past Medical History Allergies/Adverse Reactions: Allergies Allergy/AdvReac Type Severity Reaction Status Date / Time haloperidol [From Haldol] Allergy Severe Difficulty Verified 05/16/17 12:16 Breathing phenytoin [From Dilantin] Allergy Severe Difficulty Verified 05/16/17 12:16 Breathing Home Medications: Ambulatory Orders Buprenorphine/Naloxone [Suboxone 2Mg/0.5MG Sl Film -] 3 combo SL DAILY 05/16/17 Buprenorphine/Naloxone [Suboxone 8Mg/2Mg Sl Film -] 1 each SL DAILY 05/16/17 Gabapentin [Neurontin] 600 mg PO BID 05/16/17 Anemia: No Asthma: No Cancer: No Cardiac Disorders: No CVA: No COPD: No CHF: No Dementia: No Diabetes: No GI Disorders: No Disorders: No HTN: No Hypercholesterolemia: No Kidney Stones: No Liver Disease: No Seizures: Yes (alcohol related-last episode was a week ago) Thyroid Disease: No Other medical history: seizure - Surgical History Abdominal Surgery: No Appendectomy: No Cardiac Surgery: No Cholecystectomy: No Lung Surgery: No Neurologic Surgery: No Orthopedic Surgery: No - Reproductive History Testicular Surgery: No - Suicide/Smoking/Psychosocial Hx Smoking History: Former smoker Have you smoked in the past 12 months: No Number of Cigarettes Smoked Daily: 3 If you are a former smoker, when did you quit?: 1 yr ago Cigars Per Day: 0 Information on smoking cessation initiated: No 'Breaking Loose' booklet given: 05/16/17 Hx Alcohol Use: No Drug/Substance Use Hx: No Hx Substance Use Treatment: Yes (2016) Review of Systems - Review of Systems Comments:: 05/23/17 01:50 GENERAL/CONSTITUTIONAL: No fever or chills. No weakness. HEAD, EYES, EARS, NOSE AND THROAT: No change in vision. No ear pain or discharge. No sore throat. CARDIOVASCULAR: No chest pain or shortness of breath RESPIRATORY: No cough, wheezing, or hemoptysis. GASTROINTESTINAL: No nausea, vomiting, diarrhea or constipation. GENITOURINARY: No dysuria, frequency, or change in urination. MUSCULOSKELETAL: No joint or muscle swelling or pain. No neck or back pain. SKIN: No rash NEUROLOGIC: + headache. No vertigo, loss of consciousness, or change in strength/sensation. ENDOCRINE: No increased thirst. No abnormal weight change HEMATOLOGIC/LYMPHATIC: No anemia, easy bleeding, or history of blood clots. ALLERGIC/IMMUNOLOGIC: No hives or skin allergy. *Physical Exam - Vital Signs Last Vital Signs Temp Pulse Resp BP Pulse Ox 98.5 F 94 H 19 115/64 98 05/23/17 00:59 05/23/17 00:59 05/23/17 00:59 05/23/17 00:59 05/23/17 00:59 - Physical Exam Comments: 05/23/17 01:51 GENERAL: Awake, alert, and fully oriented, in no acute distress HEAD: No signs of trauma, normocephalic, atraumatic EYES: PERRLA, EOMI, sclera anicteric, conjunctiva clear ENT: Hearing grossly normal, nares patent, oropharynx clear without exudates. Moist mucosa NECK: Normal ROM, supple, no lymphadenopathy, JVD, or masses LUNGS: No distress, speaks full sentences, clear to auscultation bilaterally HEART: Regular rate and rhythm, normal S1 and S2, no murmurs, rubs or gallops, peripheral pulses normal and equal bilaterally. EXTREMITIES : Normal inspection, Normal range of motion, no edema. No clubbing or cyanosis. NEUROLOGICAL: Cranial nerves II through XII grossly intact. Normal speech, normal gait, no focal sensorimotor deficits. Neg dysmetria on FTN. Nml JUAN PABLO. SKIN: Warm, Dry, normal turgor, no rashes or lesions noted ED Treatment Course - LABORATORY CBC & Chemistry Diagram: 05/23/17 02:42 05/23/17 02:09 Medical Decision Making - Medical Decision Making 05/23/17 02:01 31 yo M with h/o homelessness, seizure disorder and cocaine, heroin, and EtoH dependence BIBA from 2 [facility] with fall s/p unwitnessed seizure and being found down on floor around 1200 PM by facility resident. Pt. recalls walking to kitchen and then recalls waking up on the floor around 1100 PM with fatigue, urinary incontinence, myalgias, and diffuse throbbing POOLE. Denies N/V, F/C, neck pain, back pain, tongue biting, or tooth avulsion, vision changes, CP, SOB, abdominal pain, urinary complaints, diarrhea, constipation, lightheadedness, vertigo, weakness, sensory changes. Reports that last alcoholic beverage was 7 days ago. Reports allergic reaction to multiple anticonvulsants including Dilantin, Keppra, and Topimax. Currently on Lexpro and Gabapentin for seizure disorder and mood stabilization. Physical exam unremarkable. HDS. Vishal obtain head imaging to r/o SAH or sentinel bleed in setting of POOLE and unwitnesses seizure. Will also assess for underlying preciptators that could lower seizure threshold. Will assess for electrolyte abn., acid-base distrubance, toxin/drug, and infection. ED Course: 05/23/17 02:03 EKG: NSR with absent YULY, STD, or TWI. Normal interval and axis. 05/23/17 02:29 05/23/17 03:20 Trop: Neg CMP: Unremarkable 05/23/17 03:36 WBC: 4.4 CT HEAD: No acute intracranial pathology. No hemorrhage. 05/23/17 03:37 Pt. Stable and medically cleared for d/c back to [facility] with return precautions. Advised to f/u with PMD. *DC/Admit/Observation/Transfer Diagnosis at time of Disposition: Seizure - Discharge Dispostion Condition at time of disposition: Stable - Referrals Referrals: Safia Gibbs MD [Staff Physician] - - Patient Instructions Printed Discharge Instructions: DI for Seizure Disorder -- Adult Additional Instructions: Please return to the emergency department with any new or worsening symptoms or concerns. Please follow up with your primary care physician within 72 hours. - Post Discharge Activity - Attestations Physician Attestion: 05/23/17 03:22 I attest to the information provided in this note.
--- NOTE | 2017-05-23 01:59 | PDOC ---
Attending Attestation - HPI HPI: 05/23/17 02:04 The patient is a 31 year old male, from [facility], with a significant past medical history of seizure disorder, substance abuse (cocaine, heroin, EtOH), who presents to the emergency department complaining of, fall s/p an unwitnessed seizure. The patient reports he was walking to the kitchen and woke up on the floor. The patient reports urinary incontinence, body aches, fatigue and a headache. He denies any neck or back pain. He denies any recent chest pain or shortness of breath. Allergies: haloperidol, phenytoin Documentation prepared by Stefan Cunha, acting as center medical and lab director for Russ Pendleton DO. <Stefan Cunha - Last Filed: 05/23/17 02:04> - Resident Resident Name: Dimas Laguna - ED Attending Attestation I have performed the following: I have examined & evaluated the patient, The case was reviewed & discussed with the resident, I agree w/resident's findings & plan, Exceptions are as noted - Physicial Exam PE: 05/23/17 02:10 Physical Exam General Appearance: Yes: Appropriately Dressed. No: Apparent Distress, Intoxicated HEENT: positive: EOMI, VERENICE, Normal ENT Inspection, Normal Voice, TMs Normal, Pharynx Normal. negative: Pale Conjunctivae, Photophobia, Scleral Icterus (R), Scleral Icterus (L) Neck: positive: Trachea midline, Normal Thyroid, Supple. negative: Tender, Rigid, Carotid bruit, Stridor, Lymphadenopathy (R), Lymphadenopathy (L), Thyromegaly Respiratory/Chest: positive: Lungs Clear, Normal Breath Sounds. negative: Chest Tender, Respiratory Distress, Accessory Muscle Use, Labored Respiration, RES, Crackles, Rales, Rhonchi, Stridor, Wheezing, Dullness Cardiovascular: positive: Regular Rhythm, Regular Rate, S1, S2. negative: Edema , JVD, Murmur, Bradycardia, Tachycardia Vascular Pulses: Dorsalis-Pedis (R): 2+, Doralis-Pedis (L): 2+ Gastrointestinal/Abdominal: positive: Normal Bowel Sounds, Flat, Soft. negative : Tender, Organomegaly, Pulsatile Mass, Increased Bowel Sounds, Decreased BS, Distended, Guarding, Rebound, Hernia, Hepatomegaly, Spleenomegaly Lymphatic: negative: Adenopathy, Tenderness Musculoskeletal: positive: Normal Inspection. negative: CVA Tenderness, Decreased Range of Motion Extremity: positive: Normal Capillary Refill, Normal Inspection, Normal Range of Motion, Pelvis Stable. negative: Tender, Pedal Edema, Swelling, Erythema Integumentary: positive: Normal Color, Dry, Warm. negative: Cyanotic, Erythema , Jaundice, Rash Neurologic: positive: senior research executive II-XII NML intact, Fully Oriented, Alert, Normal Mood/ Affect, Motor Strength 5/5. negative: EOM Palsy, Facial Droop, Sensory Deficit - Medical Decision Making 05/23/17 19:31 Pt treated and released <Russ Pendleton - Last Filed: 05/23/17 19:31>
[2017-05-23 02:49] LABS: ALBUMIN 3.7 g/dl (3.4-5.0); ALK PHOS 89 U/L (45-117); ANION GAP 9 (8-16); BILIRUBIN,TOTAL 0.6 mg/dL (0.2-1.0); BLOOD UREA NITROGEN 12 mg/dL (7-18); CALCIUM 8.7 mg/dL (8.5-10.1); CHLORIDE 101 mmol/L (98-107); CO2 27 mmol/L (21-32); CREATININE 0.6 mg/dL (0.7-1.3); GLUCOSE,RANDOM 111 mg/dL (74-106); POTASSIUM 4.3 mmol/L (3.5-5.1); SGOT/AST 48 U/L (15-37); SGPT/ALT 73 U/L (12-78); SODIUM 137 mmol/L (136-145); TOT PROT 7.2 g/dl (6.4-8.2)
[2017-05-23 02:55] LABS: BASO % 0.7 % (0-2.0); EOS % 7.1 % (0-4.5); HEMATOCRIT 41.5 % (35.4-49); HEMOGLOBIN 13.9 GM/dL (11.7-16.9); LYMPH % 28.7 % (8-40); MCH 30.1 pg (25.7-33.7); MCHC 33.5 g/dl (32.0-35.9); MONO % 12.3 % (3.8-10.2); NEUT % 51.2 % (42.8-82.8); RBC 4.62 M/mm3 (4.00-5.60); RDW 15.8 % (11.9-15.9); WHITE BLOOD COUNT 4.4 K/mm3 (4.0-10.0)
[2017-05-23 03:52] LABS: PLATELET ESTIMATE DECREASED
[2017-05-23 03:53] LABS: MEAN PLT VOLUME 8.6 fl (7.5-11.1); PLATELET COUNT 90 K/MM3 (134-434)
[2017-05-23 05:45] LABS: URINE APPEARANCE CLEAR; URINE BILIRUBIN NEGATIVE (NEGATIVE); URINE BLOOD NEGATIVE (NEGATIVE); URINE COLOR YELLOW; URINE GLUCOSE (UA) NEGATIVE (NEGATIVE); URINE KETONE NEGATIVE (NEGATIVE); URINE LEUK ESTERASE NEGATIVE (NEGATIVE); URINE NITRITE NEGATIVE (NEGATIVE); URINE PROTEIN NEGATIVE (NEGATIVE); URINE UROBILINOGEN NEGATIVE mg/dL (0.2-1.0)
[2017-05-23 06:12] LABS: COCAINE, UR NEGATIVE ng/ml (CUTOFF=300); METHADONE, UR NEGATIVE ng/ml (CUTOFF=300); OPIATES, URI NEGATIVE ng/ml (CUTOFF=300); PHENCYCLIDINE,URINE NEGATIVE ng/ml (CUTOFF=25); URINE AMPHETAMINES NEGATIVE ng/ml (CUTOFF=500); URINE BARBITURATES NEGATIVE ng/ml (CUTOFF=200)
[2017-05-23 06:13] LABS: URINE BENZODIAZEPINES POSITIVE ng/ml (CUTOFF=200)
--- NOTE | 2017-05-23 08:24 | EKG ---
Test Reason : Blood Pressure : / mmHG Vent. Rate : 088 BPM Atrial Rate : 088 BPM P-R Int : 140 ms QRS Dur : 094 ms QT Int : 342 ms P-R-T Axes : 053 055 024 degrees QTc Int : 413 ms NORMAL SINUS RHYTHM NORMAL ECG WHEN COMPARED WITH ECG OF 16-MAY-2017 14:55, NO SIGNIFICANT CHANGE WAS FOUND Confirmed by GISSELLE DAWKINS MD ([id number]) on 05/23/2017 8:24:21 AM Referred By: Confirmed By:GISSELLE DAWKINS MD
[2017-05-23 09:16] VITALS: BP 113/79; PULSE 77
== END 2017-05-23 10:01 | disposition short-term general hospital (02) ==
LOC: JER 00:51
DX: R56.9 Unspecified convulsions (principal); Z59.0 Homelessness; F10.20 Alcohol dependence, uncomplicated; F14.20 Cocaine dependence, uncomplicated; Z87.891 Personal history of nicotine dependence
CPT/HCPCS: 36415; 70450-TC; 80053; 80307; 81003; 82550; 84484; 85025; 93005; 93010; 99282-25

== ENCOUNTER 2018-01-13 19:04 | Inpatient (IN) | payer OTHER ==
[2018-01-13 19:36] VITALS: BMI 25.0
--- NOTE | 2018-01-13 20:59 | HP ---
CIWA Score Nausea/Vomitin-No Nausea/No Vomiting Muscle Tremors: None Anxiety: 4-Mod. Anxious/Guarded Agitation: 4-Moderately Restless Paroxysmal Sweats: 3 Orientation: 0-Oriented Tacttile Disturbances: 2-Mild Itch/Numbness/Burn Auditory Disturbances: 0-None Visual Disturbances: 0-None Headache: 0-None Present CIWA-Ar Total Score: 13 - Admission Criteria [facility] Guidelines: Admission for Medically Managed Detox: Requires at least one of the followin. CIWA greater than 12 2. Seizures within the past 24 hours 3. Delirium tremens within the past 24 hours 4. Hallucinations within the past 24 hours 5. Acute intervention needed for co occurring medical disorder 6. Acute intervention needed for co occurring psychiatric disorder 7. Severe withdrawal that cannot be handled at a lower level of care (continued vomiting, continued diarrhea, abnormal vital signs) requiring intravenous medication and/or fluids 8. Patient presents the following: CIWA greater than 12, Acute intervention needed for co-occurring med or psych disorder Admission Criteria Met: Admission criteria met Admission ROS [facility] Chief Complaint: SEEKING DETOX FOR ALCOHOL WITHDRAWAL SX'S Allergies/Adverse Reactions: Allergies Allergy/AdvReac Type Severity Reaction Status Date / Time haloperidol [From Haldol] Allergy Severe Difficulty Verified 05/16/17 12:16 Breathing phenytoin [From Dilantin] Allergy Severe Difficulty Verified 05/16/17 12:16 Breathing History of Present Illness: 32 Y.O. MALE WITH HX/O ALCOHOLISM AND OPIOID DEPENDENCE HERE FOR DETOX. CLIENT IS CURRENTLY ON SBX MGMT. HE IS KNOWN TO THIS PROGRAM. LAST HERE 05/2017. HE IS REFERRED BY [facility] DUE TO THEM BEING AT CAPACITY. HE STATES HE TOOK HIS SBX DOSE OF 6 MG TODAY. DOSE VERIFIED VIA MACHINE BUILDER. HE REPORTS A HX/O AVH, DT WHILE WITHDRAWING. DENIES HX/O SEIZURES, SI. PMHX- HEPC NO TXMENT PSYCH ANXIETY Exam Limitations: No Limitations - Ebola screening Have you traveled outside of the country in the last 21 days: No (N) Have you had contact with anyone from an Ebola affected area: No Have you been sick,other than usual withdrawal symptoms: No Do you have a fever: No - Review of Systems Constitutional: Chills, Night Sweats EENT: reports: No Symptoms Reported Respiratory: reports: No Symptoms reported Cardiac: reports: No Symptoms Reported GI: reports: Diarrhea : reports: Other (HESITANCY) Musculoskeletal: reports: No Symptoms Reported Integumentary: reports: No Symptoms Reported Neuro: reports: No Symptoms reported Endocrine: reports: No Symptoms Reported Hematology: reports: No Symptoms Reported Psychiatric: reports: Anxious Other Systems: Reviewed and Negative Patient History - Patient Medical History Hx Anemia: No Hx Asthma: No Hx Chronic Obstructive Pulmonary Disease (COPD): No Hx Cancer: No Hx Cardiac Disorders: No Hx Congestive Heart Failure: No Hx Hypertension: No Hx Hypercholesterolemia: No Hx Pacemaker: No HX Cerebrovascular Accident: No Hx Seizures: Yes (alcohol related) Hx Dementia: No Hx Diabetes: No Hx Gastrointestinal Disorders: No Hx Liver Disease: No Hx Genitourinary Disorders: No Hx Sexually Transmitted Disorders: No Hx Renal Disease (ESRD): No Hx Thyroid Disease: No Hx Human Immunodeficiency Virus (HIV): No Hx Hepatitis C: Yes (NO TXMENT) Hx Depression: No Hx Suicide Attempt: No Hx Bipolar Disorder: No Hx Schizophrenia: No Other Medical History: DENIES - Patient Surgical History Past Surgical History: Yes Hx Neurologic Surgery: No Hx Cataract Extraction: No Hx Cardiac Surgery: No Hx Lung Surgery: No Hx Breast Surgery: No Hx Breast Biopsy: No Hx Abdominal Surgery: No Hx Appendectomy: No Hx Cholecystectomy: No Hx Genitourinary Surgery: No Hx Section: No Hx Orthopedic Surgery: Yes (R WRIST FX REPAIR) Anesthesia Reaction: No - PPD History Previous Implant?: Yes Documented Results: Negative w/proof Implanted On Prior [facility] Admission?: Yes Date: 05/18/17 Results: 0MM PPD to be Administered?: No - Smoking Cessation Smoking history: Current every day smoker Have you smoked in the past 12 months: Yes Aproximately how many cigarettes per day: 5 Cigars Per Day: 0 Hx Chewing Tobacco Use: No Initiated information on smoking cessation: Yes 'Breaking Loose' booklet given: 01/13/18 - Substance & Tx. History Hx Alcohol Use: Yes Hx Substance Use: Yes Substance Use Type: Alcohol, Prescribed (SBX) Hx Substance Use Treatment: Yes ([facility]) - Substances Abused VODKA Route: Oral Frequency: Daily Amount used: 1.5 LITER Age of first use: 12 Date of Last Use: 01/12/18 Family Disease History - Family Disease History Family Disease History: Other: Father (ALCOHOLIC) Admission Physical Exam [facility] - Vital Signs Vital Signs: Vital Signs - 24 hr 01/13/18 19:33 Temperature 98.1 F Pulse Rate 86 Respiratory 18 Rate Blood Pressure 145/87 - Physical General Appearance: Yes: Appropriately Dressed, Moderate Distress, Alcohol on Breath, Irritable, Sweating, Anxious HEENTM: Yes: EOMI, Normocephalic, Normal Voice, VERENICE, Pharynx Normal, Other ( POOR DENTITION) Respiratory: Yes: Chest Non-Tender, Lungs Clear, Normal Breath Sounds, No Respiratory Distress, No Accessory Muscle Use Neck: Yes: No masses,lesions,Nodules, Supple, Trachea in good position Breast: Yes: Breast Exam Deferred Cardiology: Yes: Regular Rhythm, Regular Rate, S1, S2 Abdominal: Yes: Normal Bowel Sounds, Non Tender, Flat, Soft Genitourinary: Yes: Hesitency Back: Yes: Normal Inspection Musculoskeletal: Yes: full range of Motion, Other (UNSTEADY GAIT) Extremities: Yes: Normal Capillary Refill, Normal Range of Motion, Non-Tender Neurological: Yes: Fully Oriented, Alert, Motor Strength 5/5, Depressed Affect Integumentary: Yes: Warm, Moist, Other (FLUSHED OLD CUT SOLIS TO LEFT WRIST. 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 (6) Substance induced mood disorder Current Visit: Yes Status: Suspected (7) Encounter for monitoring Suboxone maintenance therapy Current Visit: Yes Status: Chronic Comment: SUBOXONE 6 MG SL DAILY (8) Hepatitis C Current Visit: Yes Status: Chronic Qualifiers: Viral hepatitis chronicity: chronic Hepatic coma status: without hepatic coma Qualified Code(s): B18.2 - Chronic viral hepatitis C Cleared for Admission [facility] - Detox or Rehab [facility] Level of Care: Medically Managed Detox Regimen/Protocol: Librium Claeared for Rehab Admission: No [facility] Breath Alcohol Content Breath Alcohol Content: 0 Urine Drug Screen - Results Drug Screen Negative: No Urine Drug Screen Results: THC-Marijuana, BUP-Suboxone
[2018-01-13] MEDS ORDERED: hydrOXYzine PAMOATE 50 MG CAPSULE (FP) PO PRN (21:16)
[2018-01-13] MEDS ORDERED: MAGNESIUM HYDROX 2400MG/30ML ORAL SUSPENSION 30 ML CUP PO PRN (21:16)
[2018-01-13] MEDS ORDERED: ACETAMINOPHEN 325 MG TABLET (FP) PO PRN (21:16)
[2018-01-13] MEDS ORDERED: MAG HYDROX/AL HYDROX/SIMETH 30 ML UNIT-DOSE CUP PO PRN (21:16)
[2018-01-13] MEDS ORDERED: MENTHOL/PHENOL 1 EACH UD MM PRN (21:16)
[2018-01-13] MEDS ORDERED: MAGNESIUM CITRATE 300 ML BOTTLE PO PRN (21:16)
[2018-01-13] MEDS ORDERED: guaiFENesin/D-METHORPHAN HB 10 ML UNIT-DOSE CUPS PO PRN (21:16)
[2018-01-13] MEDS ORDERED: IBUPROFEN 400 MG TABLET (FP) PO PRN (21:16)
[2018-01-13] MEDS ORDERED: NICOTINE POLACRILEX 2 MG GUM BUC PRN (21:16)
[2018-01-13] MEDS ORDERED: LOPERAMIDE HCL 2 MG CAPSULE PO PRN (21:16)
[2018-01-13] MEDS ORDERED: P-EPHED 60MG/TRIPROLIDI 2.5MG TABLET PO PRN (21:16)
[2018-01-13] MEDS: THIAMINE HCL 100 MG TABLET (FP) PO SCH (23:46)
[2018-01-13] MEDS: chlordiazePOXIDE HCL 25 MG CAPSULE PO SCH (23:46)
[2018-01-14 03:26] LABS: URINE APPEARANCE CLEAR; URINE BILIRUBIN NEGATIVE (<2.0 mg/dL); URINE COLOR YELLOW; URINE GLUCOSE (UA) NEGATIVE (NEGATIVE); URINE KETONE NEGATIVE (NEGATIVE); URINE LEUK ESTERASE NEGATIVE (NEGATIVE); URINE NITRITE NEGATIVE (NEGATIVE); URINE PROTEIN 2+ (NEGATIVE); URINE UROBILINOGEN 4.0 E.U/dl mg/dL (0.2-1.0)
[2018-01-14 03:46] LABS: URINE MUCUS RARE
[2018-01-14] MEDS: chlordiazePOXIDE HCL 25 MG CAPSULE PO SCH ×4 (06:37→22:18)
[2018-01-14] MEDS: chlordiazePOXIDE HCL 25 MG CAPSULE PO PRN ×2 (08:58→14:43)
[2018-01-14 09:51] LABS: HEMOGLOBIN 10.3 GM/dL (11.7-16.9); MCH 18.3 pg (25.7-33.7); MCHC 28.7 g/dl (32.0-35.9); MEAN PLT VOLUME 8.3 fl (7.5-11.1); PLATELET COUNT 112 K/MM3 (134-434); RBC 5.62 M/mm3 (4.00-5.60); RDW 21.3 % (11.9-15.9); WHITE BLOOD COUNT 2.6 K/mm3 (4.0-10.0)
[2018-01-14] MEDS ORDERED: BUPRENORPHINE/NALOXONE 2 MG/0.5 MG FILM PACKET SL SCH (10:00)
[2018-01-14 10:17] LABS: ALBUMIN 4.1 g/dl (3.4-5.0); ALK PHOS 119 U/L (45-117); ANION GAP 13 MMOL/L (8-16); BILIRUBIN,TOTAL 0.8 mg/dL (0.2-1); BLOOD UREA NITROGEN 7 mg/dL (7-18); CALCIUM 8.6 mg/dL (8.5-10.1); CHLORIDE 106 mmol/L (98-107); CO2 25 mmol/L (21-32); CREATININE 0.5 mg/dL (0.55-1.3); GLUCOSE,RANDOM 81 mg/dL (74-106); POTASSIUM 4.1 mmol/L (3.5-5.1); SGOT/AST 124 U/L (15-37); SGPT/ALT 87 U/L (13-61); SODIUM 145 mmol/L (136-145); TOT PROT 7.9 g/dl (6.4-8.2)
[2018-01-14] MEDS: PRENATAL VITAMINS W/ FOLIC ACID TABLET (FP) PO SCH (10:56)
[2018-01-14] MEDS: NICOTINE 14 MG/24 HOURS TOPICAL PATCH TD SCH (10:59)
--- NOTE | 2018-01-14 11:54 | PN ---
S CIWA - CIWA Score Nausea/Vomitin Muscle Tremors: 3 Anxiety: 3 Agitation: 3 Paroxysmal Sweats: No Perspiration Orientation: 0-Oriented Tacttile Disturbances: 0-None Auditory Disturbances: 0-None Visual Disturbances: 0-None Headache: 0-None Present CIWA-Ar Total Score: 11 BHS Progress Note (SOAP) Subjective: PATIENT C/O ANXIETY, RESTLESSNESS, NAUSEA/DIARRHEA AND SHAKES. Objective: 01/14/18 11:55 Vital Signs Temperature 96.8 F L 01/14/18 09:32 Pulse Rate 80 01/14/18 09:32 Respiratory Rate 18 01/14/18 09:32 Blood Pressure 130/80 01/14/18 09:32 O2 Sat by Pulse Oximetry (%) Laboratory Tests 01/13/18 01/14/18 01/14/18 20:02 07:13 07:13 WBC 2.6 L RBC 5.62 H Hgb 10.3 L Hct 36.0 MCV 64.0 L MCH 18.3 L D MCHC 28.7 L RDW 21.3 H Plt Count 112 L D MPV 8.3 Sodium 145 Potassium 4.1 Chloride 106 Carbon Dioxide 25 Anion Gap 13 BUN 7 Creatinine 0.5 L Creat Clearance w eGFR > 60 Random Glucose 81 Calcium 8.6 Total Bilirubin 0.8 AST 124 H ALT 87 H Alkaline Phosphatase 119 H Total Protein 7.9 Albumin 4.1 Urine Color Yellow Urine Appearance Clear Urine pH 6.0 Ur Specific [place] 1.024 Urine Protein 2+ H Urine Glucose (UA) Negative Urine Ketones Negative Urine Blood Negative Urine Nitrite Negative Urine Bilirubin Negative Urine Urobilinogen 4.0 e.u/dl Ur Leukocyte Esterase Negative Urine WBC (Auto) <1 Urine RBC (Auto) <1 Urine Mucus Rare RPR Titer 01/14/18 07:13 WBC RBC Hgb Hct MCV MCH MCHC RDW Plt Count MPV Sodium Potassium Chloride Carbon Dioxide Anion Gap BUN Creatinine Creat Clearance w eGFR Random Glucose Calcium Total Bilirubin AST ALT Alkaline Phosphatase Total Protein Albumin Urine Color Urine Appearance Urine pH Ur Specific [place] Urine Protein Urine Glucose (UA) Urine Ketones Urine Blood Urine Nitrite Urine Bilirubin Urine Urobilinogen Ur Leukocyte Esterase Urine WBC (Auto) Urine RBC (Auto) Urine Mucus RPR Titer Nonreactive PE: ALERT AND ORIENTED X 3 SKIN WARM, +BEADS OF SWEAT ON FOREHEAD CAR S1S2 RESP CTA BL EXT FULL ROM, +TREMORS ANXIOUS, IRRITABLE Assessment: 01/14/18 11:57 WITHDRAWAL SX Plan: CONTINUE DETOX ENCOURAGE ORAL FLUIDS CONTINUE TO MONITOR CLINICALLY
[2018-01-14] MEDS ORDERED: FLU VACCINE QUAD 60 MCG/0.5 ML (MDV 18-19) IM ONE (12:00)
--- NOTE | 2018-01-14 16:14 | EKG ---
Test Reason : Blood Pressure : / mmHG Vent. Rate : 083 BPM Atrial Rate : 083 BPM P-R Int : 150 ms QRS Dur : 102 ms QT Int : 360 ms P-R-T Axes : 058 060 045 degrees QTc Int : 423 ms NORMAL SINUS RHYTHM NORMAL ECG WHEN COMPARED WITH ECG OF 23-MAY-2017 01:38, NO SIGNIFICANT CHANGE WAS FOUND Confirmed by MD Hurtado Edward ([id number]) on 01/14/2018 4:14:20 PM Referred By: Confirmed By:Jay Hurtado MD
--- NOTE | 2018-01-14 17:02 | CONSULT ---
[facility] Psychiatric Consult - Data Date of interview: 01/14/18 Admission source: [facility] Identifying data: Readmission to [facility] for this 32 y/o [place]born male (raised in [facility] since age 9) seeking detoxification treatment, on , for alcohol, cannabis and opioid dependence. Patient is single without dependents, domiciled, unemployed and supported by relatives. Substance Abuse History: Confirmed by the patient in this interview. Details in current [facility] report : Smoking history: Current every day smoker. Have you smoked in the past 12 months: Yes. Aproximately how many cigarettes per day: 5. Cigars Per Day: 0. Hx Chewing Tobacco Use: No. Initiated information on smoking cessation: Yes. 'Breaking Loose' booklet given: 01/13/18. - Substance & Tx. History. Hx Alcohol Use: Yes. Hx Substance Use: Yes. Substance Use Type : Alcohol, Prescribed (SBX). Hx Substance Use Treatment: Yes ([facility]). - Substances Abused. VODKA. Route: Oral. Frequency: Daily. Amount used: 1.5 LITER. Age of first use: 12. Date of Last Use: 01/12/18 Medical History: Seizure disorder, hepatitis C (untreated) and a history of orthosurgery for fracture of right wrist. History of severe laceration of right forearm in August 2017 (work-related injury). Psychiatric History: Patient endorses a history of multiple psychiatric hospitalizations ([facility], [facility], [facility], [facility]). Early onset of emotional distubances (assessed by a psychiatrist at age 11 : behavioral issues). Mr Mosher declares that he was diagnosed with Bipolar Disorder + Anxiety Disorder. Has been tried on various psychotropics, which include lithium, valproate, gabapentin, quetiapine, clonazepam, escitalopram and others. Patient has been on methadone maintenance (130 mg/day) at the [facility] program. Has been switched to suboxone maintenance for the past four years. Used to see a psychiatrist at the [facility] OPD clinic in [place]. Patient states that he is currently WITHOUT a psychiatric OPD provider. Has been off medications " for a while ". Except for hypnotic medication, the patient indicates that he is not interested in getting back on psychotropics. Admits to a remote (eight years ago ) history of suicide attempt via self-mutilation (wrist-cutting). 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 Upset over his recent break-up with fiancee of seven years and chronic unemployment + failure to secure unemployment benefits. Additional Comment: Urine Drug Screen Results: THC-Marijuana, BUP-Suboxone. Noted. Mental Status Exam - Mental Status Exam Alert and Oriented to: Time, Place, Person Cognitive Function: Good Patient Appearance: Well Groomed Mood: Nervous, Anxious Affect: Appropriate, Normal Range Patient Behavior: Fatigued, Appropriate, Cooperative Speech Pattern: Clear (fluent, welsh speaking, no accent), Appropriate Voice Loudness: Normal Thought Process: Intact, Goal Oriented Thought Disorder: Not Present Hallucinations: Denies Suicidal Ideation: Denies Homicidal Ideation: Denies Insight/Judgement: Poor Sleep: Poorly, Difficulty falling asleep Appetite: Good Muscle strength/Tone: Normal Gait/Station: Normal Psychiatric Findings - Problem List ([place] 1, 2,3) (1) Opioid dependence on agonist therapy Current Visit: Yes Status: Acute (2) Alcohol dependence with uncomplicated withdrawal Current Visit: Yes Status: Acute (3) Cannabis dependence Current Visit: Yes Status: Acute (4) Nicotine dependence Current Visit: Yes Status: Acute Qualifiers: Nicotine product type: cigarettes Substance use status: uncomplicated Qualified Code(s): F17.210 - Nicotine dependence, cigarettes, uncomplicated Comment: .. (5) Substance induced mood disorder Current Visit: Yes Status: Acute (6) Bipolar disorder Current Visit: No Status: Acute Comment: As per history and self report. Asymptomatic at this time. (7) Insomnia Current Visit: Yes Status: Acute (8) Non-compliant patient Current Visit: Yes Status: Chronic - Initial Treatment Plan Initial Treatment Plan: Psychoeducation. Sleep hygiene. Detoxification in progress. Group, supportive psychotherapy. Patient is encouraged to keep adherence to suboxone maintenance. Motivational rounds. Insomnia is addressed with melatonin at bedtime. Observation. Seizures precautions.
[2018-01-14] MEDS: THIAMINE HCL 100 MG TABLET (FP) PO SCH (22:18)
[2018-01-14] MEDS: MELATONIN 5 MG TABLETS PO PRN (22:18)
[2018-01-15] MEDS: chlordiazePOXIDE HCL 25 MG CAPSULE PO SCH ×3 (05:36→17:24)
[2018-01-15] MEDS: NICOTINE 14 MG/24 HOURS TOPICAL PATCH TD SCH (11:07)
[2018-01-15] MEDS: BUPRENORPHINE/NALOXONE 2 MG/0.5 MG FILM PACKET SL SCH (11:07)
[2018-01-15] MEDS: PRENATAL VITAMINS W/ FOLIC ACID TABLET (FP) PO SCH (11:07)
--- NOTE | 2018-01-15 12:39 | PN ---
S CIWA - CIWA Score Nausea/Vomitin-No Nausea/No Vomiting Muscle Tremors: 2 Anxiety: 2 Agitation: 2 Paroxysmal Sweats: No Perspiration Orientation: 0-Oriented Tacttile Disturbances: 0-None Auditory Disturbances: 0-None Visual Disturbances: 0-None Headache: 0-None Present CIWA-Ar Total Score: 6 BHS Progress Note (SOAP) Subjective: PATIENT C/O ANXIETY, SHAKES AND RESTLESSNESS. Objective: 01/15/18 12:38 Vital Signs Temperature 98.1 F 01/15/18 09:38 Pulse Rate 69 01/15/18 09:38 Respiratory Rate 18 01/15/18 09:38 Blood Pressure 105/67 01/15/18 09:38 O2 Sat by Pulse Oximetry (%) Laboratory Tests 01/13/18 01/14/18 01/14/18 20:02 07:13 07:13 WBC 2.6 L RBC 5.62 H Hgb 10.3 L Hct 36.0 MCV 64.0 L MCH 18.3 L D MCHC 28.7 L RDW 21.3 H Plt Count 112 L D MPV 8.3 Sodium 145 Potassium 4.1 Chloride 106 Carbon Dioxide 25 Anion Gap 13 BUN 7 Creatinine 0.5 L Creat Clearance w eGFR > 60 Random Glucose 81 Calcium 8.6 Total Bilirubin 0.8 AST 124 H ALT 87 H Alkaline Phosphatase 119 H Total Protein 7.9 Albumin 4.1 Urine Color Yellow Urine Appearance Clear Urine pH 6.0 Ur Specific [place] 1.024 Urine Protein 2+ H Urine Glucose (UA) Negative Urine Ketones Negative Urine Blood Negative Urine Nitrite Negative Urine Bilirubin Negative Urine Urobilinogen 4.0 e.u/dl Ur Leukocyte Esterase Negative Urine WBC (Auto) <1 Urine RBC (Auto) <1 Urine Mucus Rare RPR Titer 01/14/18 07:13 WBC RBC Hgb Hct MCV MCH MCHC RDW Plt Count MPV Sodium Potassium Chloride Carbon Dioxide Anion Gap BUN Creatinine Creat Clearance w eGFR Random Glucose Calcium Total Bilirubin AST ALT Alkaline Phosphatase Total Protein Albumin Urine Color Urine Appearance Urine pH Ur Specific [place] Urine Protein Urine Glucose (UA) Urine Ketones Urine Blood Urine Nitrite Urine Bilirubin Urine Urobilinogen Ur Leukocyte Esterase Urine WBC (Auto) Urine RBC (Auto) Urine Mucus RPR Titer Nonreactive PE: ALERT AND ORIENTED X 3 SKIN WARM AND DRY EXT FULL ROM, +MILD TREMORS, NO EDEMA AMB AD DONELL Assessment: 11/14/18 12:38 WITHDRAWAL SX Plan: COTINUE DETOX ORDERED ENCOURAGE ORAL FLUIDS LAB RESULTS GIVEN TO PATIENT PATIENT ENCOURAGED TO FOLLOW UP WITH PCP WITHIN ONE WEEK FOR D/C CONTINUE TO MONITOR CLINICALLY
[2018-01-15] MEDS: chlordiazePOXIDE HCL 25 MG CAPSULE PO PRN ×2 (15:50→21:10)
--- NOTE | 2018-01-15 17:52 | PN ---
BHS Progress Note Note: Suboxone dose increase written earlier. Pt c/o opiate w/drawal symptoms. Will give Suboxone at 6 pm instead of 10 pm.
[2018-01-15] MEDS ORDERED: BUPRENORPHINE/NALOXONE 2 MG/0.5 MG FILM PACKET SL SCH ×3 (18:00→22:00)
[2018-01-15] MEDS: THIAMINE HCL 100 MG TABLET (FP) PO SCH (22:09)
[2018-01-15] MEDS: chlordiazePOXIDE 5 MG CAPSULE PO SCH (22:09)
[2018-01-15] MEDS: MELATONIN 5 MG TABLETS PO PRN (22:10)
[2018-01-16] MEDS: chlordiazePOXIDE 5 MG CAPSULE PO SCH ×3 (06:16→17:49)
[2018-01-16 10:24] LABS: BASO % 1.2 % (0-2.0); EOS % 0.7 % (0-4.5); HEMOGLOBIN 10.7 GM/dL (11.7-16.9); LYMPH % 59.2 % (8-40); MCHC 28.9 g/dl (32.0-35.9); MEAN CELL VOLUME 64.2 fl (80-96); MEAN PLT VOLUME 8.7 fl (7.5-11.1); MONO % 10.4 % (3.8-10.2); NEUT % 28.5 % (42.8-82.8); PLATELET COUNT 91 K/MM3 (134-434); RBC 5.76 M/mm3 (4.00-5.60); RDW 20.9 % (11.9-15.9); WHITE BLOOD COUNT 3.2 K/mm3 (4.0-10.0)
[2018-01-16 10:35] LABS: MCH 18.6 pg (25.7-33.7)
[2018-01-16] MEDS: PRENATAL VITAMINS W/ FOLIC ACID TABLET (FP) PO SCH (10:43)
[2018-01-16] MEDS: BUPRENORPHINE/NALOXONE 2 MG/0.5 MG FILM PACKET SL SCH (10:43)
[2018-01-16] MEDS: NICOTINE 14 MG/24 HOURS TOPICAL PATCH TD SCH (10:43)
--- NOTE | 2018-01-16 11:04 | PN ---
BHS Progress Note Note: PATIENT CONTINUES WITH DETOX REGIMEN. C/O MILD SHAKES, SWEATING. Vital Signs Temperature 97.0 F L 01/16/18 09:26 Pulse Rate 71 01/16/18 09:26 Respiratory Rate 18 01/16/18 09:26 Blood Pressure 115/66 01/16/18 09:26 O2 Sat by Pulse Oximetry (%) Laboratory Tests 01/13/18 01/14/18 01/14/18 20:02 07:13 07:13 WBC 2.6 L RBC 5.62 H Hgb 10.3 L Hct 36.0 MCV 64.0 L MCH 18.3 L D MCHC 28.7 L RDW 21.3 H Plt Count 112 L D MPV 8.3 Absolute Neuts (auto) Neutrophils % Lymphocytes % Monocytes % Eosinophils % Basophils % Nucleated RBC % Sodium 145 Potassium 4.1 Chloride 106 Carbon Dioxide 25 Anion Gap 13 BUN 7 Creatinine 0.5 L Creat Clearance w eGFR > 60 Random Glucose 81 Calcium 8.6 Total Bilirubin 0.8 AST 124 H ALT 87 H Alkaline Phosphatase 119 H Total Protein 7.9 Albumin 4.1 Urine Color Yellow Urine Appearance Clear Urine pH 6.0 Ur Specific [place] 1.024 Urine Protein 2+ H Urine Glucose (UA) Negative Urine Ketones Negative Urine Blood Negative Urine Nitrite Negative Urine Bilirubin Negative Urine Urobilinogen 4.0 e.u/dl Ur Leukocyte Esterase Negative Urine WBC (Auto) <1 Urine RBC (Auto) <1 Urine Mucus Rare RPR Titer 01/14/18 01/16/18 07:13 07:00 WBC 3.2 L RBC 5.76 H Hgb 10.7 L Hct 37.0 MCV 64.2 L MCH 18.6 L MCHC 28.9 L RDW 20.9 H Plt Count 91 L MPV 8.7 Absolute Neuts (auto) 0.9 L Neutrophils % 28.5 L D Lymphocytes % 59.2 H D Monocytes % 10.4 H Eosinophils % 0.7 D Basophils % 1.2 Nucleated RBC % 0 Sodium Potassium Chloride Carbon Dioxide Anion Gap BUN Creatinine Creat Clearance w eGFR Random Glucose Calcium Total Bilirubin AST ALT Alkaline Phosphatase Total Protein Albumin Urine Color Urine Appearance Urine pH Ur Specific [place] Urine Protein Urine Glucose (UA) Urine Ketones Urine Blood Urine Nitrite Urine Bilirubin Urine Urobilinogen Ur Leukocyte Esterase Urine WBC (Auto) Urine RBC (Auto) Urine Mucus RPR Titer Nonreactive PE: SKIN WARM AND MILD FACIAL MOISTURE. ALERT AND ORIENTED X 3 EXT FULL, AMB AD DONELL, MILD TREMORS A/P: ENCOURAGE ORAL FLUIDS CONTINUE DETOX CONTINUE TO MONITOR CLINICALLY
[2018-01-16 14:35] LABS: ANISOCYTOSIS 2+; MACROCYTOSIS 0; PLATELET ESTIMATE DECREASED; TARGET CELLS 1+; TEAR DROP CELLS 1+
[2018-01-16] MEDS: chlordiazePOXIDE HCL 25 MG CAPSULE PO PRN (15:20)
[2018-01-16] MEDS: MELATONIN 5 MG TABLETS PO PRN (22:11)
[2018-01-16] MEDS: THIAMINE HCL 100 MG TABLET (FP) PO SCH (22:11)
[2018-01-16] MEDS: chlordiazePOXIDE HCL 10 MG CAPSULE PO SCH (22:11)
[2018-01-17] MEDS: chlordiazePOXIDE HCL 10 MG CAPSULE PO SCH ×2 (05:50→10:32)
[2018-01-17 09:51] VITALS: BP 185/100; PULSE 92; TEMP 98.1
[2018-01-17] MEDS: NICOTINE 14 MG/24 HOURS TOPICAL PATCH TD SCH (10:29)
[2018-01-17] MEDS: PRENATAL VITAMINS W/ FOLIC ACID TABLET (FP) PO SCH (10:32)
[2018-01-17] MEDS: BUPRENORPHINE/NALOXONE 2 MG/0.5 MG FILM PACKET SL SCH (10:32)
--- NOTE | 2018-01-17 12:18 | DS ---
[facility] Detox Discharge Summary Admission Date: 01/13/18 Discharge Date: 01/17/18 - History Present History: Alcohol Dependence - Physical Exam Results Vital Signs: Vital Signs Temperature 98.1 F 01/17/18 09:50 Pulse Rate 92 H 01/17/18 09:50 Respiratory Rate 20 01/17/18 09:50 Blood Pressure 185/100 H 01/17/18 09:50 O2 Sat by Pulse Oximetry (%) Pertinent Admission Physical Exam Findings: PATIENT COMPLETED DETOX WITHOUT ADVERSE EVENT. PATIENT CLINICALLY STABLE, DENIES SI/HI. PATIENT ALERT AND ORIENTED X 3, SKIN WARM AND DRY, EXT NO TREMORS , FULL ROM, AMB AD DONELL. PATIENT ACCEPT REHAB REFERRAL TO [facility] AT [address] PATIENT ENCOURAGED TO COMPLETE REHAB TO PREVENT RELAPSE. D/C INSTRUCTIONS GIVEN TO PATIENT BY STAFF. - Treatment Hospital Course: Detox Protocol Followed, Detoxed Safely, Responded well, Discharged Condition Good, Rehab Referral Accepted Patient has Accepted a Rehab Referral to: [facility] - Medication Discharge Medications: Ambulatory Orders Buprenorphine/Naloxone [Suboxone 2Mg/0.5MG Sl Film -] 3 combo SL DAILY 05/16/17 Gabapentin [Neurontin] 600 mg PO BID 05/16/17 - Diagnosis (1) Alcohol dependence with uncomplicated withdrawal Current Visit: Yes Status: Resolved - AMA Did Patient Leave Against Medical Advice: No
== END 2018-01-17 14:22 | disposition home or self-care (01) | DRG 773 ==
LOC: YASAS 19:04 → Y3N 21:43
PROC: HZ2ZZZZ Detoxification Services for Substance Abuse Treatment (ICD-10-PCS; principal; 2018-01-13)
DX: F10.230 Alcohol dependence with withdrawal, uncomplicated (principal); F12.20 Cannabis dependence, uncomplicated; F11.20 Opioid dependence, uncomplicated; F17.210 Nicotine dependence, cigarettes, uncomplicated; F31.9 Bipolar disorder, unspecified; F19.24 Other psychoactive substance dependence with psychoactive substance-induced mood disorder; B18.2 Chronic viral hepatitis C; G47.00 Insomnia, unspecified; R45.89 Other symptoms and signs involving emotional state; Z86.69 Personal history of other diseases of the nervous system and sense organs; Z51.81 Encounter for therapeutic drug level monitoring; Z91.5 Personal history of self-harm; Z59.0 Homelessness; Z91.19 Patient's noncompliance with other medical treatment and regimen
CPT/HCPCS: 36415; 80053; 81003; 81015; 85025; 85027; 86593; 93005; 93010

== ENCOUNTER 2018-12-24 14:43 | Inpatient (IN) | payer OTHER ==
[2018-12-24 17:09] VITALS: BMI 23.8
--- NOTE | 2018-12-24 19:56 | HP ---
CIWA Score Nausea/Vomitin-No Nausea/No Vomiting Muscle Tremors: 3 Anxiety: 3 Agitation: 4-Moderately Restless Paroxysmal Sweats: 3 (Increased facial moisture) Orientation: 1-Uncertain about Date Tacttile Disturbances: 0-None Auditory Disturbances: 0-None Visual Disturbances: 0-None Headache: 0-None Present CIWA-Ar Total Score: 14 - Admission Criteria OASAS Guidelines: Admission for Medically Managed Detox: Requires at least one of the followin. CIWA greater than 12 2. Seizures within the past 24 hours 3. Delirium tremens within the past 24 hours 4. Hallucinations within the past 24 hours 5. Acute intervention needed for co occurring medical disorder 6. Acute intervention needed for co occurring psychiatric disorder 7. Severe withdrawal that cannot be handled at a lower level of care (continued vomiting, continued diarrhea, abnormal vital signs) requiring intravenous medication and/or fluids 8. Patient presents the following: CIWA greater than 12 (PORFIRIO: 0.232) Admission Criteria Met: Admission criteria met Admitting History and Physical - Smoking History Smoking history: Current every day smoker Have you smoked in the past 12 months: Yes Aproximately how many cigarettes per day: 5 If you are a former smoker, when did you quit?: 1 yr ago - Alcohol/Substance Use Hx Alcohol Use: Yes Admission ROS S - HPI Chief Complaint: Here for alcohol detox Allergies/Adverse Reactions: Allergies Allergy/AdvReac Type Severity Reaction Status Date / Time haloperidol [From Haldol] Allergy Severe Difficulty Verified 12/24/18 16:58 Breathing phenytoin [From Dilantin] Allergy Severe Difficulty Verified 12/24/18 16:58 Breathing History of Present Illness: 33 yo presents w/ alcohol intoxication seeking detox. Last [facility] admission 2018 and states was able to stay sober for about 9-10 months. PORFIRIO: 0.232 Utox: + THC/MTD Alcohol use since age 13. Drinks 1 liter vodka per day. Heroin use disorder on START Methadone Maintenance. Current methadone dose 120 mg PO daily. Last medicated today. Marijuana use since age 13. Currently 1 blunt/day. Nicotine use at age 11. Smokes 3-4 PPD. Hx seizures - States on clonazepam and gabapentin. Last seizure over 1 year ago. Hx blackouts r/t alcohol use. Denies overdose. PMHx: Epilepsy. Treated Hep C. MHHx: Denies depression. Denies thoughts of harming self or others. SHx: Homeless. Unemployed. No legal situations. Patient Name: Dylon Capps Date: 1985 Address: [address] [place] [id number] Sex: Male Rx Written Rx Dispensed Drug Quantity Days Supply Prescriber Name 05/05/2018 05/08/2018 buprenorphine-naloxone 4-1 mg sl film 30 30 Ho, Omar Perez MD 05/05/2018 05/05/2018 buprenorphine-naloxone 2-0.5 mg sl film 30 30 Ho, Omar Perez MD 04/07/2018 04/07/2018 suboxone 4 mg-1 mg sl film 30 30 Ho, Omar Perez MD 04/07/2018 04/07/2018 suboxone 2 mg-0.5 mg sl film 30 30 Ho, Omar Perez MD 03/10/2018 03/10/2018 suboxone 4 mg-1 mg sl film 30 30 Ho, Omar Perez MD 03/10/2018 03/10/2018 suboxone 2 mg-0.5 mg sl film 30 30 Ho, Omar Perez MD 02/24/2018 02/24/2018 suboxone 2 mg-0.5 mg sl film 14 14 Ho, Omar Perez MD 02/24/2018 02/24/2018 suboxone 4 mg-1 mg sl film 14 14 HoOmar MD 02/10/2018 02/10/2018 suboxone 4 mg-1 mg sl film 14 14 Ho, Omar Perez MD 02/10/2018 02/10/2018 suboxone 2 mg-0.5 mg sl film 14 14 HoOmar MD 01/27/2018 01/27/2018 suboxone 4 mg-1 mg sl film 14 14 HoOmar MD 01/27/2018 01/27/2018 suboxone 2 mg-0.5 mg sl film 14 14 HoOmar MD 01/03/2018 01/06/2018 suboxone 2 mg-0.5 mg sl film 14 14 HoOmar MD 01/03/2018 01/06/2018 suboxone 4 mg-1 mg sl film 14 14 Ho, Omar Perez MD Patient Name: Dylon Capps Date: 1985 Address: [address] [place] [id number] Sex: Male Rx Written Rx Dispensed Drug Quantity Days Supply Prescriber Name 03/26/2018 03/27/2018 suboxone 2 mg-0.5 mg sl film 14 7 Loera, Shruti 03/26/2018 03/27/2018 suboxone 4 mg-1 mg sl film 14 7 Luz Maria, Shruti Prescriptions Dispensed in [place] Patient Name: DYLON CAPPS Date: 1985 Address: [address] [place] [address] [address] [place] [address] Sex: Male Rx Written Rx Dispensed Drug Strength Quantity Days Supply Prescriber Name 08/26/2017 08/27/2017 GABAPENTIN 300 MG CAPSULE 15.0 5 INC, [facility] 08/26/2017 08/27/2017 OXYCODONE HCL 5 MG TABLET 30.0 2 INC, [facility] Exam Limitations: Intoxication (PORFIRIO: 0.232) - Ebola screening Have you traveled outside of the country in the last 21 days: No Have you had contact with anyone from an Ebola affected area: No Have you been sick,other than usual withdrawal symptoms: No Do you have a fever: No - Review of Systems Constitutional: Chills, Diaphoresis, Changes in sleep (Difficulty staying asleep ) EENT: reports: Dental Problems (Chews and swallows) Respiratory: reports: No Symptoms reported Cardiac: reports: No Symptoms Reported GI: reports: Vomiting (Every morning) : reports: No Symptoms Reported Musculoskeletal: reports: No Symptoms Reported Integumentary: reports: No Symptoms Reported Neuro: reports: No Symptoms reported Endocrine: reports: No Symptoms Reported Hematology: reports: No Symptoms Reported Psychiatric: reports: Orientated x3 (Missed by 1 day), Agitated, Anxious Patient History - Patient Medical History Hx Anemia: No Hx Asthma: No Hx Chronic Obstructive Pulmonary Disease (COPD): No Hx Cancer: No Hx Cardiac Disorders: No Hx Congestive Heart Failure: No Hx Hypertension: No Hx Hypercholesterolemia: No Hx Pacemaker: No HX Cerebrovascular Accident: No Hx Seizures: Yes (alcohol related) Hx Dementia: No Hx Diabetes: No Hx Gastrointestinal Disorders: No Hx Liver Disease: No Hx Genitourinary Disorders: No Hx Sexually Transmitted Disorders: No Hx Renal Disease (ESRD): No Hx Thyroid Disease: No Hx Human Immunodeficiency Virus (HIV): No Hx Hepatitis C: Yes (NO TXMENT) Hx Depression: No Hx Suicide Attempt: No Hx Bipolar Disorder: No Hx Schizophrenia: No - Patient Surgical History Past Surgical History: Yes Hx Neurologic Surgery: No Hx Cataract Extraction: No Hx Cardiac Surgery: No Hx Lung Surgery: No Hx Breast Surgery: No Hx Breast Biopsy: No Hx Abdominal Surgery: No Hx Appendectomy: No Hx Cholecystectomy: No Hx Genitourinary Surgery: No Hx Section: No Hx Orthopedic Surgery: Yes (R WRIST FX REPAIR) Anesthesia Reaction: No - PPD History Previous Implant?: Yes Documented Results: Negative w/proof Date: 05/18/17 Results: 0MM PPD to be Administered?: Yes - Smoking Cessation Smoking history: Current every day smoker Have you smoked in the past 12 months: Yes Aproximately how many cigarettes per day: 4 Cigars Per Day: 0 Hx Chewing Tobacco Use: No Initiated information on smoking cessation: Yes 'Breaking Loose' booklet given: 12/24/18 - Substance & Tx. History Hx Alcohol Use: Yes Hx Substance Use: Yes Substance Use Type: Alcohol, Heroin, Marijuana Hx Substance Use Treatment: Yes (DETOX, REHAB, MMTP) - Substances abused Alcohol Substance route: Oral Frequency: Daily Amount used: 1 liter of vodka Age of first use: 13 Date of last use: 12/23/18 Marijuana/Hashish Substance route: Smoking Frequency: Daily Amount used: 10 dollars Age of first use: 13 Date of last use: 12/24/18 Cocaine Substance route: Injection Frequency: 3-6 times per week Amount used: ' a lot' 3.5 grams Age of first use: 13 Date of last use: 12/20/18 Admission Physical Exam BHS - Vital Signs Vital Signs: Vital Signs - 24 hr 12/24/18 16:56 Temperature 97.2 F L Pulse Rate 77 Respiratory 18 Rate Blood Pressure 132/81 - Physical General Appearance: Yes: Nourished, Mild Distress, Intoxicated, Tremorous, Sweating, Anxious HEENTM: Yes: EOMI (JERKING MOVEMENT OF EYES UPON LATERAL GAZE), Hearing grossly Normal, Normocephalic, Normal Voice, VERENICE, Pharynx Normal Respiratory: Yes: Lungs Clear, Normal Breath Sounds, No Respiratory Distress Neck: Yes: No masses,lesions,Nodules, Supple Breast: Yes: Breast Exam Deferred Cardiology: Yes: Regular Rhythm, Regular Rate, S1, S2 Abdominal: Yes: Non Tender, Flat, Soft, Increased Bowel Sounds Genitourinary: Yes: Within Normal Limits Back: Yes: Normal Inspection Musculoskeletal: Yes: full range of Motion, Gait Steady 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 (3) Opioid dependence on agonist therapy Current Visit: Yes Status: Chronic Comment: On MMTP (4) History of seizure Current Visit: Yes Status: Suspected (5) Tinea pedis Current Visit: Yes Status: Chronic Qualifiers: Laterality: bilateral Qualified Code(s): B35.3 - Tinea pedis (6) Unspecified nystagmus Current Visit: Yes Status: Acute Cleared for Admission S - Detox or Rehab [facility] Level of Care: Medically Managed Detox Regimen/Protocol: Librium Claeared for Rehab Admission: No Breathalyzer - Breathalyzer Breathalyzer: 0.232 Urine Drug Screen - Test Device Lot number: [id number] Expiration date: 08/31/20 - Control Is test valid?: Yes - Results Drug screen NEGATIVE: No Urine drug screen results: THC-Marijuana, MTD-Methadone Inpatient Rehab Admission - Rehab Decision to Admit Inpatient rehab admission?: No
[2018-12-24] MEDS ORDERED: MENTHOL/PHENOL 1 EACH UD MM PRN (20:15)
[2018-12-24] MEDS ORDERED: MAG HYDROX/AL HYDROX/SIMETH 30 ML UNIT-DOSE CUP PO PRN (20:15)
[2018-12-24] MEDS ORDERED: MAGNESIUM CITRATE 300 ML BOTTLE PO PRN (20:15)
[2018-12-24] MEDS ORDERED: ACETAMINOPHEN 325 MG TABLET (FP) PO PRN ×2 (20:15)
[2018-12-24] MEDS ORDERED: MAGNESIUM HYDROX 2400MG/30ML ORAL SUSPENSION 30 ML CUP PO PRN (20:15)
[2018-12-24] MEDS ORDERED: BISMUTH SUBSALICYLATE 524 MG/30 ML UD PO PRN (20:15)
[2018-12-24] MEDS ORDERED: IBUPROFEN 400 MG TABLET (FP) PO PRN (20:15)
[2018-12-24] MEDS ORDERED: NICOTINE POLACRILEX 2 MG GUM BUC PRN (20:15)
[2018-12-24] MEDS: THIAMINE HCL 100 MG TABLET (FP) PO SCH (21:52)
[2018-12-24] MEDS: chlordiazePOXIDE HCL 25 MG CAPSULE PO PRN (21:52)
[2018-12-24] MEDS: GABAPENTIN 300 MG CAPSULE (FP) PO SCH (21:52)
[2018-12-24] MEDS: TOLNAFTATE 1% CREAM 15 GM TUBE TP SCH (21:52)
[2018-12-24] MEDS ORDERED: MELATONIN 5 MG TABLETS PO PRN (22:00)
[2018-12-25] MEDS: chlordiazePOXIDE HCL 25 MG CAPSULE PO SCH ×4 (05:19→22:11)
[2018-12-25 09:54] LABS: HEMATOCRIT 42.5 % (35.4-49); HEMOGLOBIN 14.1 GM/dL (11.7-16.9); MCH 30.8 pg (25.7-33.7); MCHC 33.2 g/dl (32.0-35.9); MEAN CELL VOLUME 92.9 fl (80-96); MEAN PLT VOLUME 8.3 fl (7.5-11.1); PLATELET COUNT 126 K/MM3 (134-434); RBC 4.58 M/mm3 (4.00-5.60); WHITE BLOOD COUNT 3.3 K/mm3 (4.0-10.0)
[2018-12-25] MEDS ORDERED: cloNIDine HCL 0.1 MG TABLET PO PRN (10:10)
--- NOTE | 2018-12-25 10:12 | PN ---
S CIWA - CIWA Score Nausea/Vomitin-Mild Nausea/No Vomiting Muscle Tremors: 3 Anxiety: 3 Agitation: 2 Paroxysmal Sweats: 2 Orientation: 1-Uncertain about Date (date of week) Tacttile Disturbances: 0-None Auditory Disturbances: 0-None Visual Disturbances: 0-None Headache: 0-None Present CIWA-Ar Total Score: 12 BHS Progress Note (SOAP) Subjective: doing well with librium detox regimen methadone 120 mg verified last dose 12/23/18 discuss safe dosage with the patient that last dose 12/24/18 where hospital administered begin methadone 120 mg po today Objective: 12/25/18 10:09 Vital Signs Temperature 98.1 F 12/25/18 09:26 Pulse Rate 86 12/25/18 09:26 Respiratory Rate 18 12/25/18 09:26 Blood Pressure 142/92 12/25/18 09:26 O2 Sat by Pulse Oximetry (%) Laboratory Last Values WBC 3.3 K/mm3 (4.0-10.0) L 12/25/18 08:15 RBC 4.58 M/mm3 (4.00-5.60) 12/25/18 08:15 Hgb 14.1 GM/dL (11.7-16.9) 12/25/18 08:15 Hct 42.5 % (35.4-49) 12/25/18 08:15 MCV 92.9 fl (80-96) 12/25/18 08:15 MCH 30.8 pg (25.7-33.7) D 12/25/18 08:15 MCHC 33.2 g/dl (32.0-35.9) 12/25/18 08:15 RDW 17.0 % (11.9-15.9) H 12/25/18 08:15 Plt Count 126 K/MM3 (134-434) L D 12/25/18 08:15 MPV 8.3 fl (7.5-11.1) 12/25/18 08:15 lab noted 12/25/18 10:11 clonidine 0.1 mg po q6h prn for hypertension begin methadone 120 mg po in detox Assessment: 12/25/18 10:12 alcohol withdrawal sx Plan: continue librium detox regimen
[2018-12-25 10:20] LABS: ALBUMIN 3.7 g/dl (3.4-5.0); BILIRUBIN,TOTAL 0.9 mg/dL (0.2-1); BLOOD UREA NITROGEN 9.9 mg/dL (7-18); CALCIUM 8.8 mg/dL (8.5-10.1); CREATININE 0.7 mg/dL (0.55-1.3); POTASSIUM 3.5 mmol/L (3.5-5.1); TOT PROT 7.1 g/dl (6.4-8.2)
[2018-12-25] MEDS ORDERED: METHADONE HCL 40 MG DISPERSABLE TABLET PO ONE (10:25)
[2018-12-25] MEDS: GABAPENTIN 300 MG CAPSULE (FP) PO SCH ×2 (13:03→22:11)
[2018-12-25] MEDS: PRENATAL VITAMINS W/ FOLIC ACID TABLET (FP) PO SCH (13:03)
[2018-12-25] MEDS: TOLNAFTATE 1% CREAM 15 GM TUBE TP SCH ×2 (13:07→22:13)
--- NOTE | 2018-12-25 13:37 | EKG ---
Test Reason : Blood Pressure : / mmHG Vent. Rate : 082 BPM Atrial Rate : 082 BPM P-R Int : 080 ms QRS Dur : 146 ms QT Int : 426 ms P-R-T Axes : 095 -12 -12 degrees QTc Int : 497 ms NORMAL SINUS RHYTHM [id number] ABNORMAL ECG WHEN COMPARED WITH ECG OF 13-JAN-2018 23:27, [id number] IS NOW PRESENT Confirmed by HORACE LAWLER, CAROLNY ([id number]) on 12/25/2018 1:37:10 PM Referred By: Confirmed By:CAROLYN VU MD
--- NOTE | 2018-12-25 13:45 | PN ---
[facility] Progress Note Note: history of bipolar disorder,on seroquel before
[2018-12-25] MEDS: chlordiazePOXIDE HCL 25 MG CAPSULE PO PRN (14:59)
[2018-12-25] MEDS: THIAMINE HCL 100 MG TABLET (FP) PO SCH (22:10)
[2018-12-26] MEDS ORDERED: chlordiazePOXIDE HCL 10 MG CAPSULE PO PRN
[2018-12-26] MEDS: chlordiazePOXIDE HCL 25 MG CAPSULE PO SCH ×3 (05:54→17:36)
[2018-12-26] MEDS ORDERED: METHADONE HCL 40 MG DISPERSABLE TABLET PO SCH (06:00)
[2018-12-26] MEDS: PRENATAL VITAMINS W/ FOLIC ACID TABLET (FP) PO SCH (10:18)
[2018-12-26] MEDS: TOLNAFTATE 1% CREAM 15 GM TUBE TP SCH (10:18)
[2018-12-26] MEDS: GABAPENTIN 300 MG CAPSULE (FP) PO SCH (10:18)
--- NOTE | 2018-12-26 12:05 | PN ---
S CIWA - CIWA Score Nausea/Vomitin-Mild Nausea/No Vomiting Muscle Tremors: 2 Anxiety: 2 Agitation: 2 Paroxysmal Sweats: No Perspiration Orientation: 0-Oriented Tacttile Disturbances: 1-Very Mild Itch/Numbness Auditory Disturbances: 0-None Visual Disturbances: 0-None Headache: 1-Very Mild CIWA-Ar Total Score: 9 S Progress Note (SOAP) Subjective: alert,irritable,anxious,interrupted sleep,pain in the body Objective: 12/26/18 12:04 Vital Signs Temperature 98.1 F 12/26/18 09:07 Pulse Rate 72 12/26/18 09:07 Respiratory Rate 18 12/26/18 09:07 Blood Pressure 130/77 12/26/18 09:07 O2 Sat by Pulse Oximetry (%) Laboratory Last Values WBC 3.3 K/mm3 (4.0-10.0) L 12/25/18 08:15 RBC 4.58 M/mm3 (4.00-5.60) 12/25/18 08:15 Hgb 14.1 GM/dL (11.7-16.9) 12/25/18 08:15 Hct 42.5 % (35.4-49) 12/25/18 08:15 MCV 92.9 fl (80-96) 12/25/18 08:15 MCH 30.8 pg (25.7-33.7) D 12/25/18 08:15 MCHC 33.2 g/dl (32.0-35.9) 12/25/18 08:15 RDW 17.0 % (11.9-15.9) H 12/25/18 08:15 Plt Count 126 K/MM3 (134-434) L D 12/25/18 08:15 MPV 8.3 fl (7.5-11.1) 12/25/18 08:15 Sodium 140 mmol/L (136-145) 12/25/18 08:15 Potassium 3.5 mmol/L (3.5-5.1) 12/25/18 08:15 Chloride 103 mmol/L (98-107) 12/25/18 08:15 Carbon Dioxide 28 mmol/L (21-32) 12/25/18 08:15 Anion Gap 9 MMOL/L (8-16) 12/25/18 08:15 BUN 9.9 mg/dL (7-18) 12/25/18 08:15 Creatinine 0.7 mg/dL (0.55-1.3) 12/25/18 08:15 Est GFR (CKD-EPI)AfAm 144.72 12/25/18 08:15 Est GFR (CKD-EPI)NonAf 124.87 12/25/18 08:15 Random Glucose 87 mg/dL (74-106) 12/25/18 08:15 Calcium 8.8 mg/dL (8.5-10.1) 12/25/18 08:15 Total Bilirubin 0.9 mg/dL (0.2-1) 12/25/18 08:15 AST 48 U/L (15-37) H 12/25/18 08:15 ALT 42 U/L (13-61) 12/25/18 08:15 Alkaline Phosphatase 106 U/L (45-117) 12/25/18 08:15 Total Protein 7.1 g/dl (6.4-8.2) 12/25/18 08:15 Albumin 3.7 g/dl (3.4-5.0) 12/25/18 08:15 RPR Titer Nonreactive (NONREACTIVE) 12/25/18 08:15 Assessment: 12/26/18 12:04 withdrawal symptom Plan: continue detox librium regimen
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
[2018-12-26 14:41] VITALS: BP 104/61; PULSE 63; TEMP 98.2
--- NOTE | 2018-12-26 18:53 | DS ---
[facility] Detox Discharge Summary Admission Date: 12/24/18 Discharge Date: 12/26/18 - History Present History: Alcohol Dependence, Cannabis Dependence, Opioid Dependence Additional Comments: PATIENT ELECTED TO LEAVE DETOX UNIT AGAINST MEDICAL ADVICE. PATIENT WALKED OFF OF DETOX UNIT BEFORE SHOE STITCHER COULD EVEN BE NOTIFIED TO COME TO UNIT TO SPEAK WITH PATIENT PRIOR TO DEPARTURE FROM DETOX UNIT. Pertinent Past History: Hep C, History Of Bipolar Disorder, History of Seizures, History of Suboxone Maintenance Therapy, Nicotine Dependence, Nystagmus, Tinea Pedis. - Physical Exam Results Vital Signs: Vital Signs Temperature 98.2 F 12/26/18 13:00 Pulse Rate 63 12/26/18 13:00 Respiratory Rate 18 12/26/18 13:00 Blood Pressure 104/61 12/26/18 13:00 O2 Sat by Pulse Oximetry (%) Pertinent Admission Physical Exam Findings: WITHDRAWAL SYMPTOMS. Laboratory Tests 12/25/18 12/25/18 12/25/18 08:15 08:15 08:15 WBC 3.3 L RBC 4.58 Hgb 14.1 Hct 42.5 MCV 92.9 MCH 30.8 D MCHC 33.2 RDW 17.0 H Plt Count 126 L D MPV 8.3 Sodium 140 Potassium 3.5 Chloride 103 Carbon Dioxide 28 Anion Gap 9 BUN 9.9 Creatinine 0.7 Est GFR (CKD-EPI)AfAm 144.72 Est GFR (CKD-EPI)NonAf 124.87 Random Glucose 87 Calcium 8.8 Total Bilirubin 0.9 AST 48 H ALT 42 Alkaline Phosphatase 106 Total Protein 7.1 Albumin 3.7 RPR Titer Nonreactive LABS NOTED. - Medication Discharge Medications: Ambulatory Orders Gabapentin [Neurontin] 600 mg PO BID 05/16/17 - Diagnosis (1) Alcohol dependence with uncomplicated withdrawal Current Visit: Yes Status: Acute (2) Unspecified nystagmus Current Visit: Yes Status: Acute (3) Cannabis dependence Current Visit: Yes Status: Chronic (4) History of bipolar disorder Current Visit: Yes Status: Chronic (5) Nicotine dependence Current Visit: Yes Status: Chronic Qualifiers: Nicotine product type: cigarettes Substance use status: uncomplicated Qualified Code(s): F17.210 - Nicotine dependence, cigarettes, uncomplicated (6) Non-compliant patient Current Visit: Yes Status: Chronic (7) Opioid dependence on agonist therapy Current Visit: Yes Status: Chronic (8) Substance induced mood disorder Current Visit: Yes Status: Chronic (9) Tinea pedis Current Visit: Yes Status: Chronic Qualifiers: Laterality: bilateral Qualified Code(s): B35.3 - Tinea pedis - AMA Did Patient Leave Against Medical Advice: Yes (PATIENT LEFT DETOX WITHOUT WAITING TO SPEAK WITH SHOE STITCHER.)
[2018-12-27] MEDS ORDERED: chlordiazePOXIDE HCL 10 MG CAPSULE PO SCH (05:00)
[2018-12-28] MEDS ORDERED: chlordiazePOXIDE HCL 10 MG CAPSULE PO SCH (05:00)
[2018-12-29] MEDS ORDERED: chlordiazePOXIDE HCL 10 MG CAPSULE PO ONE (05:00)
== END 2018-12-26 16:47 | disposition left against medical advice (07) | DRG 770 ==
LOC: YASAS 14:43 → Y3N 20:29
PROVIDERS: ADMIT Allergy & Immunology; ATTEND Allergy & Immunology
PROC: HZ2ZZZZ Detoxification Services for Substance Abuse Treatment (ICD-10-PCS; principal; 2018-12-24)
DX: F10.230 Alcohol dependence with withdrawal, uncomplicated (principal); F10.220 Alcohol dependence with intoxication, uncomplicated; F11.20 Opioid dependence, uncomplicated; F12.20 Cannabis dependence, uncomplicated; F17.210 Nicotine dependence, cigarettes, uncomplicated; F19.24 Other psychoactive substance dependence with psychoactive substance-induced mood disorder; H55.00 Unspecified nystagmus; B35.3 Tinea pedis; B18.2 Chronic viral hepatitis C; Z91.19 Patient's noncompliance with other medical treatment and regimen; Z88.8 Allergy status to other drugs, medicaments and biological substances; Z86.69 Personal history of other diseases of the nervous system and sense organs
CPT/HCPCS: 36415; 80053; 85027; 86593; 93005; 93010; J0735

== ENCOUNTER 2021-12-11 20:13 | Inpatient (IN) | payer OTHER ==
[2021-12-11 21:57] VITALS: BMI 26.9
[2021-12-11] MEDS ORDERED: DICYCLOMINE HCL 10 MG CAPSULE PO PRN (22:40)
[2021-12-11] MEDS ORDERED: MELATONIN 5 MG TABLETS PO PRN (22:40)
[2021-12-11] MEDS ORDERED: IBUPROFEN 600 MG TABLET (FP) PO PRN (22:40)
[2021-12-11] MEDS ORDERED: NICOTINE 10 MG CARTRIDGE (INHALER) IH PRN (22:40)
[2021-12-11] MEDS ORDERED: LOPERAMIDE HCL 2 MG CAPSULE PO PRN (22:40)
[2021-12-11] MEDS ORDERED: IBUPROFEN 400 MG TABLET (FP) PO PRN (22:40)
[2021-12-11] MEDS ORDERED: NICOTINE POLACRILEX 2 MG GUM BUC PRN (22:40)
[2021-12-11] MEDS ORDERED: NALOXONE HCL (KLOXXADO) 8 MG SPRAY NS PRN (22:40)
[2021-12-11] MEDS ORDERED: BISMUTH SUBSALICYLATE 524 MG/30 ML PO PRN (22:40)
[2021-12-11] MEDS ORDERED: MAG HYDROX/AL HYDROX/SIMETH 30 ML UNIT-DOSE CUP PO PRN (22:40)
[2021-12-11] MEDS ORDERED: NALOXONE HCL 0.4 MG/ML VIAL IM PRN (22:40)
[2021-12-11] MEDS ORDERED: P-EPHED 60MG/TRIPROLIDI 2.5MG TABLET PO PRN (22:40)
[2021-12-11] MEDS ORDERED: guaiFENesin 200 MG/10 ML 10 ML UNIT-DOSE CUPS PO PRN (22:40)
[2021-12-11] MEDS ORDERED: MAGNESIUM HYDROX 2400MG/30ML ORAL SUSPENSION 30 ML CUP PO PRN (22:40)
[2021-12-11] MEDS ORDERED: BENZOCAINE/MENTHOL (CHLORASEPTIC ) LOZENGE MM PRN (22:40)
[2021-12-11] MEDS ORDERED: ACETAMINOPHEN 325 MG TABLET (FP) PO PRN ×2 (22:40)
[2021-12-11] MEDS ORDERED: ONDANSETRON *ODT* 4 MG TABLET SL PRN (22:40)
[2021-12-11] MEDS ORDERED: MAGNESIUM CITRATE 300 ML BOTTLE PO PRN (22:40)
[2021-12-11] MEDS ORDERED: chlordiazePOXIDE HCL 25 MG CAPSULE PO PRN (22:44)
[2021-12-11] MEDS: chlordiazePOXIDE HCL 25 MG CAPSULE PO SCH (23:53)
[2021-12-11] MEDS: GABAPENTIN 300 MG CAPSULE PO SCH (23:53)
[2021-12-12] MEDS: LACOSAMIDE 50 MG TABLET PO SCH ×3 (00:09→22:48)
[2021-12-12] MEDS: chlordiazePOXIDE HCL 25 MG CAPSULE PO SCH ×4 (05:47→22:49)
[2021-12-12] MEDS: PRENATAL VITAMINS W/ FOLIC ACID TABLET (FP) PO SCH (10:45)
[2021-12-12] MEDS: hydrOXYzine PAMOATE 25 MG CAPSULE (FP) PO PRN ×2 (10:45→18:06)
[2021-12-12] MEDS: METHOCARBAMOL 500 MG TABLET PO PRN (10:45)
[2021-12-12] MEDS: GABAPENTIN 300 MG CAPSULE PO SCH ×2 (10:45→22:49)
[2021-12-12 11:26] LABS: HEMOGLOBIN 12.9 GM/dL (11.7-16.9); MCH 27.7 pg (25.7-33.7); MCHC 32.4 g/dl (32.0-35.9); MEAN CELL VOLUME 85.5 fl (80-96); MEAN PLT VOLUME 7.8 fl (7.5-11.1); PLATELET COUNT 146 10^3/uL (134-434); RBC 4.67 M/mm3 (4.00-5.60); RDW 19.1 % (11.9-15.9)
[2021-12-12] MEDS ORDERED: methaDONE HCL 10 MG TABLET PO SCH (11:30)
[2021-12-12 11:42] LABS: ALBUMIN 3.4 g/dl (3.4-5.0); BLOOD UREA NITROGEN 12.3 mg/dL (7-18); CALCIUM 8.9 mg/dL (8.5-10.1)
[2021-12-12 11:45] LABS: CREATININE 0.7 mg/dL (0.55-1.3)
[2021-12-12 11:47] LABS: BILIRUBIN,TOTAL 0.8 mg/dL (0.2-1); TOT PROT 7.1 g/dl (6.4-8.2)
[2021-12-12] MEDS: methaDONE HCL 40 MG DISPERSABLE TABLET PO SCH (12:05)
[2021-12-12 12:30] LABS: HIV INTERPRETATION NEGATIVE (NEGATIVE)
[2021-12-12] MEDS: THIAMINE HCL 100 MG TABLET (FP) PO SCH (22:49)
[2021-12-13] MEDS: methaDONE HCL 40 MG DISPERSABLE TABLET PO SCH (06:22)
[2021-12-13] MEDS: chlordiazePOXIDE HCL 25 MG CAPSULE PO SCH ×4 (06:23→22:03)
[2021-12-13] MEDS: hydrOXYzine PAMOATE 25 MG CAPSULE (FP) PO PRN ×2 (10:53→18:49)
[2021-12-13] MEDS: GABAPENTIN 300 MG CAPSULE PO SCH ×2 (10:53→22:02)
[2021-12-13] MEDS: METHOCARBAMOL 500 MG TABLET PO PRN (10:53)
[2021-12-13] MEDS: LACOSAMIDE 50 MG TABLET PO SCH ×2 (10:53→22:03)
[2021-12-13] MEDS: PRENATAL VITAMINS W/ FOLIC ACID TABLET (FP) PO SCH (10:53)
[2021-12-13] MEDS: THIAMINE HCL 100 MG TABLET (FP) PO SCH (22:03)
[2021-12-13] MEDS ORDERED: LORazepam 2 MG/ML SDV VIAL IM STA (22:45)
[2021-12-13 22:49] VITALS: BP 145/83; PULSE 78; RESP 18; TEMP 97.3
[2021-12-14] MEDS ORDERED: chlordiazePOXIDE HCL 10 MG CAPSULE PO PRN
[2021-12-14] MEDS ORDERED: chlordiazePOXIDE HCL 10 MG CAPSULE PO SCH (05:00)
[2021-12-15] MEDS ORDERED: chlordiazePOXIDE HCL 10 MG CAPSULE PO SCH (05:00)
[2021-12-16] MEDS ORDERED: chlordiazePOXIDE HCL 10 MG CAPSULE PO ONE (05:00)
== END 2021-12-14 07:49 | disposition short-term general hospital (02) | DRG 774 ==
LOC: YASAS 20:13 → Y6N 22:49
PROVIDERS: ADMIT Allergy & Immunology; ATTEND Surgery
PROC: HZ2ZZZZ Detoxification Services for Substance Abuse Treatment (ICD-10-PCS; principal; 2021-12-11)
DX: F10.230 Alcohol dependence with withdrawal, uncomplicated (principal); F14.20 Cocaine dependence, uncomplicated; F12.20 Cannabis dependence, uncomplicated; F17.210 Nicotine dependence, cigarettes, uncomplicated; R56.9 Unspecified convulsions; Z59.00 Homelessness unspecified; Z88.8 Allergy status to other drugs, medicaments and biological substances
CPT/HCPCS: 36415; 80053; 85027; 86780; 87389; 87811; C9803-CS; U0003; U0005

== ENCOUNTER 2021-12-13 23:19 | Observation (INO) | payer OTHER ==
[2021-12-13 23:49] VITALS: BMI 29.0
[2021-12-14 01:26] LABS: CALCIUM 9.8 mg/dL (8.5-10.1)
[2021-12-14 01:27] LABS: ALBUMIN 3.6 g/dl (3.4-5.0); BLOOD UREA NITROGEN 10.2 mg/dL (7-18)
[2021-12-14 01:29] LABS: CREATININE 0.7 mg/dL (0.55-1.3)
[2021-12-14 01:32] LABS: BILIRUBIN,TOTAL 0.4 mg/dL (0.2-1); TOT PROT 7.7 g/dl (6.4-8.2)
[2021-12-14 02:19] LABS: BASO % 0.6 % (0-2.0); EOS % 2.3 % (0-4.5); HEMATOCRIT 41.4 % (35.4-49); HEMOGLOBIN 13.3 GM/dL (11.7-16.9); LYMPH % 33.8 % (8-40); MCH 27.2 pg (25.7-33.7); MCHC 32.1 g/dl (32.0-35.9); MEAN CELL VOLUME 84.8 fl (80-96); MEAN PLT VOLUME 8.1 fl (7.5-11.1); MONO % 7.9 % (3.8-10.2); NEUT % 55.4 % (42.8-82.8); PLATELET COUNT 147 10^3/uL (134-434); RBC 4.88 M/mm3 (4.00-5.60); RDW 18.9 % (11.9-15.9); WHITE BLOOD COUNT 3.2 K/mm3 (4.0-10.0)
[2021-12-14] MEDS ORDERED: LORazepam 2 MG TABLET PO SCH (05:00)
[2021-12-14] MEDS ORDERED: LORazepam 1 MG TABLET PO PRN (06:41)
[2021-12-14] MEDS ORDERED: ENOXAPARIN NA (PORCINE) 40 MG/0.4 ML DISP.SYRIN SQ SCH (10:00)
[2021-12-14] MEDS ORDERED: methaDONE HCL 40 MG DISPERSABLE TABLET PO ONE (10:30)
[2021-12-14] MEDS ORDERED: Lacosamide 200 MG/20 ML VIAL IVPB ONE ×2 (10:50→11:02)
[2021-12-14] MEDS ORDERED: methaDONE HCL 40 MG DISPERSABLE TABLET ONE (11:01)
[2021-12-14] MEDS ORDERED: LORazepam 1 MG TABLET ONE ×2 (11:02→16:35)
[2021-12-14] MEDS: LORazepam 1 MG TABLET PO SCH ×2 (11:13→16:36)
[2021-12-14] MEDS ORDERED: LIDOCAINE 5% TOPICAL PATCH TP SCH (13:00)
[2021-12-14] MEDS ORDERED: ACETAMINOPHEN 1000 MG/100 ML BAG IVPB PRN (13:02)
[2021-12-14] MEDS ORDERED: KETOROLAC TROMETHAMINE 15 MG/ML VIAL IVPUSH PRN (13:03)
[2021-12-14 15:46] VITALS: BP 104/71; PULSE 87; RESP 20; TEMP 97.8
[2021-12-14] MEDS ORDERED: LACOSAMIDE 100 MG TABLET PO SCH (22:00)
[2021-12-14] MEDS ORDERED: LIDOCAINE PATCH REMOVAL MC SCH (22:00)
[2021-12-15] MEDS ORDERED: LORazepam 1 MG TABLET PO SCH (05:00)
[2021-12-16] MEDS ORDERED: LORazepam 0.5 MG TABLET PO PRN
[2021-12-16] MEDS ORDERED: LORazepam 0.5 MG TABLET PO SCH (05:00)
[2021-12-17] MEDS ORDERED: LORazepam 0.5 MG TABLET PO ONE (05:00)
== END 2021-12-14 19:07 | disposition left against medical advice (07) ==
LOC: JER 23:19 → JERBED 12-14 04:52 → UNDOADMOB 12-14 04:52 → INTOOBSV 12-14 04:52 → JERBED 12-14 08:18
PROVIDERS: ADMIT Internal Medicine; ATTEND Internal Medicine
PROC: 3E033GC Introduction of Other Therapeutic Substance into Peripheral Vein, Percutaneous Approach (ICD-10-PCS; principal; 2021-12-14)
DX: G40.509 Epileptic seizures related to external causes, not intractable, without status epilepticus (principal); F11.20 Opioid dependence, uncomplicated; F10.20 Alcohol dependence, uncomplicated; F14.20 Cocaine dependence, uncomplicated; R94.5 Abnormal results of liver function studies; Z91.14 Patient's other noncompliance with medication regimen; Z87.891 Personal history of nicotine dependence; Z59.00 Homelessness unspecified
CPT/HCPCS: 0241U-QW; 36415; 70450-TC; 71045-TC-FY; 80053; 82550; 82553; 83605; 84146; 85025; 96374; 99285-25; G0378

== ENCOUNTER 2022-05-01 12:11 | Inpatient (IN) | payer OTHER ==
[2022-05-01] MEDS: ONDANSETRON *ODT* 4 MG TABLET SL PRN (03:15)
[2022-05-01 13:46] VITALS: BMI 26.6
[2022-05-01] MEDS ORDERED: LOPERAMIDE HCL 2 MG CAPSULE PO PRN (14:16)
[2022-05-01] MEDS ORDERED: NICOTINE 10 MG CARTRIDGE (INHALER) IH PRN (14:16)
[2022-05-01] MEDS ORDERED: ACETAMINOPHEN 325 MG TABLET (FP) PO PRN ×2 (14:16)
[2022-05-01] MEDS ORDERED: LORazepam 2 MG TABLET PO ONE (14:16)
[2022-05-01] MEDS ORDERED: MAG HYDROX/AL HYDROX/SIMETH 30 ML UNIT-DOSE CUP PO PRN (14:16)
[2022-05-01] MEDS ORDERED: NICOTINE 7 MG/24 HOURS TOPICAL PATCH TD PRN (14:16)
[2022-05-01] MEDS ORDERED: NICOTINE POLACRILEX 2 MG GUM BUC PRN (14:16)
[2022-05-01] MEDS ORDERED: BENZOCAINE/MENTHOL (CHLORASEPTIC ) LOZENGE MM PRN (14:16)
[2022-05-01] MEDS ORDERED: IBUPROFEN 400 MG TABLET (FP) PO PRN (14:16)
[2022-05-01] MEDS ORDERED: POLYETHYLENE GLYCOL (HEALTHYLAX) 3350 17 GM PACKET PO PRN (14:16)
[2022-05-01] MEDS ORDERED: BISMUTH SUBSALICYLATE 262 MG/15 ML BTL PO PRN (14:16)
[2022-05-01] MEDS ORDERED: DICYCLOMINE HCL 10 MG CAPSULE PO PRN (14:16)
[2022-05-01] MEDS ORDERED: IBUPROFEN 600 MG TABLET (FP) PO PRN (14:16)
[2022-05-01] MEDS ORDERED: MAGNESIUM HYDROX 2400MG/30ML ORAL SUSPENSION 30 ML CUP PO PRN (14:16)
[2022-05-01] MEDS ORDERED: ONDANSETRON *ODT* 4 MG TABLET ONE (14:29)
[2022-05-01] MEDS ORDERED: LORazepam 2 MG TABLET ONE (14:53)
[2022-05-01] MEDS ORDERED: LACOSAMIDE 50 MG TABLET PO ONE ×2 (15:30→16:30)
[2022-05-01] MEDS ORDERED: methaDONE HCL 40 MG DISPERSABLE TABLET PO ONE ×2 (15:30→16:30)
[2022-05-01] MEDS: LORazepam 2 MG TABLET PO SCH ×2 (17:58→22:09)
[2022-05-01] MEDS: FAMOTIDINE 20 MG TABLET PO SCH (22:08)
[2022-05-01] MEDS: THIAMINE HCL 100 MG TABLET (FP) PO SCH (22:09)
[2022-05-01] MEDS: MELATONIN 5 MG TABLETS PO SCH (22:09)
[2022-05-01] MEDS: LACOSAMIDE 50 MG TABLET PO SCH (22:09)
[2022-05-02] MEDS: LORazepam 2 MG TABLET PO SCH ×4 (05:51→22:04)
[2022-05-02] MEDS: methaDONE HCL 40 MG DISPERSABLE TABLET PO SCH (05:51)
[2022-05-02] MEDS: ONDANSETRON *ODT* 4 MG TABLET SL PRN (05:53)
[2022-05-02] MEDS: LACOSAMIDE 50 MG TABLET PO SCH ×2 (10:20→22:03)
[2022-05-02] MEDS: FAMOTIDINE 20 MG TABLET PO SCH ×2 (10:21→22:03)
[2022-05-02] MEDS: PRENATAL VITAMINS W/ FOLIC ACID TABLET (FP) PO SCH (10:21)
[2022-05-02] MEDS: hydrOXYzine PAMOATE 25 MG CAPSULE (FP) PO PRN (13:10)
[2022-05-02] MEDS: LORazepam 1 MG TABLET PO PRN (13:11)
[2022-05-02 15:11] LABS: CALCIUM 9.6 mg/dL (8.5-10.1)
[2022-05-02 15:12] LABS: ALBUMIN 3.9 g/dl (3.4-5.0); BLOOD UREA NITROGEN 10.3 mg/dL (7-18)
[2022-05-02 15:15] LABS: CREATININE 0.7 mg/dL (0.55-1.3); HEMATOCRIT 43.7 % (35.4-49); HEMOGLOBIN 14.5 GM/dL (11.7-16.9); MCH 30.1 pg (25.7-33.7); MCHC 33.1 g/dl (32.0-35.9); MEAN CELL VOLUME 90.8 fl (80-96); MEAN PLT VOLUME 8.8 fl (7.5-11.1); PLATELET COUNT 123 10^3/uL (134-434); RBC 4.82 M/mm3 (4.00-5.60); RDW 20.9 % (11.9-15.9); WHITE BLOOD COUNT 3.3 K/mm3 (4.0-10.0)
[2022-05-02 15:17] LABS: BILIRUBIN,TOTAL 0.9 mg/dL (0.2-1); TOT PROT 7.6 g/dl (6.4-8.2)
[2022-05-02] MEDS: MELATONIN 5 MG TABLETS PO SCH (22:03)
[2022-05-02] MEDS: THIAMINE HCL 100 MG TABLET (FP) PO SCH (22:03)
[2022-05-02] MEDS: METHOCARBAMOL 500 MG TABLET PO PRN (22:05)
[2022-05-03] MEDS: LORazepam 1 MG TABLET PO SCH ×3 (05:58→17:17)
[2022-05-03] MEDS: methaDONE HCL 40 MG DISPERSABLE TABLET PO SCH (05:58)
[2022-05-03] MEDS: FAMOTIDINE 20 MG TABLET PO SCH ×2 (10:12→22:26)
[2022-05-03] MEDS: hydrOXYzine PAMOATE 25 MG CAPSULE (FP) PO PRN (10:12)
[2022-05-03] MEDS: LACOSAMIDE 50 MG TABLET PO SCH ×2 (10:13→22:25)
[2022-05-03] MEDS: PRENATAL VITAMINS W/ FOLIC ACID TABLET (FP) PO SCH (10:13)
[2022-05-03] MEDS: LORazepam 1 MG TABLET PO PRN ×3 (13:59→20:04)
[2022-05-03] MEDS: chlordiazePOXIDE HCL 25 MG CAPSULE PO PRN (20:44)
[2022-05-03] MEDS: chlordiazePOXIDE HCL 25 MG CAPSULE PO SCH (22:26)
[2022-05-03] MEDS: THIAMINE HCL 100 MG TABLET (FP) PO SCH (22:26)
[2022-05-03] MEDS: MELATONIN 5 MG TABLETS PO SCH (22:26)
[2022-05-04] MEDS ORDERED: LORazepam 0.5 MG TABLET PO PRN
[2022-05-04] MEDS: METHOCARBAMOL 500 MG TABLET PO PRN (00:53)
[2022-05-04] MEDS: hydrOXYzine PAMOATE 25 MG CAPSULE (FP) PO PRN ×2 (00:53→10:09)
[2022-05-04] MEDS: chlordiazePOXIDE HCL 25 MG CAPSULE PO SCH ×3 (04:06→17:43)
[2022-05-04] MEDS ORDERED: LORazepam 0.5 MG TABLET PO SCH (05:00)
[2022-05-04] MEDS: methaDONE HCL 40 MG DISPERSABLE TABLET PO SCH (05:40)
[2022-05-04] MEDS: FAMOTIDINE 20 MG TABLET PO SCH (10:09)
[2022-05-04] MEDS: LACOSAMIDE 50 MG TABLET PO SCH (10:09)
[2022-05-04] MEDS: PRENATAL VITAMINS W/ FOLIC ACID TABLET (FP) PO SCH (10:10)
[2022-05-04] MEDS: chlordiazePOXIDE HCL 25 MG CAPSULE PO PRN (15:03)
[2022-05-04 17:44] VITALS: BP 122/89; PULSE 105; RESP 18; TEMP 97.5
[2022-05-05] MEDS ORDERED: chlordiazePOXIDE HCL 25 MG CAPSULE PO SCH (05:00)
[2022-05-05] MEDS ORDERED: LORazepam 0.5 MG TABLET PO ONE (05:00)
[2022-05-06] MEDS ORDERED: chlordiazePOXIDE HCL 10 MG CAPSULE PO PRN
[2022-05-06] MEDS ORDERED: chlordiazePOXIDE HCL 10 MG CAPSULE PO SCH (05:00)
[2022-05-07] MEDS ORDERED: chlordiazePOXIDE HCL 10 MG CAPSULE PO SCH (05:00)
[2022-05-08] MEDS ORDERED: chlordiazePOXIDE HCL 10 MG CAPSULE PO ONE (05:00)
== END 2022-05-04 17:11 | disposition left against medical advice (07) | DRG 770 ==
LOC: YASAS 12:11 → Y3N 15:24
PROVIDERS: ADMIT Allergy & Immunology; ATTEND Surgery
PROC: HZ2ZZZZ Detoxification Services for Substance Abuse Treatment (ICD-10-PCS; principal; 2022-05-01)
DX: F10.230 Alcohol dependence with withdrawal, uncomplicated (principal); F11.20 Opioid dependence, uncomplicated; F17.210 Nicotine dependence, cigarettes, uncomplicated; F25.0 Schizoaffective disorder, bipolar type; G40.909 Epilepsy, unspecified, not intractable, without status epilepticus; Z86.19 Personal history of other infectious and parasitic diseases; Z88.8 Allergy status to other drugs, medicaments and biological substances
CPT/HCPCS: 36415; 80053; 82962; 85027; 86780; 87811; C9803-CS; Q0162; U0003; U0005

== ENCOUNTER 2022-10-15 15:29 | Inpatient (IN) | payer OTHER ==
[2022-10-15 16:03] VITALS: BMI 25.8
[2022-10-15] MEDS ORDERED: BISMUTH SUBSALICYLATE 524 MG/30 ML PO PRN (22:04)
[2022-10-15] MEDS ORDERED: DICYCLOMINE HCL 10 MG CAPSULE PO PRN (22:04)
[2022-10-15] MEDS ORDERED: BENZOCAINE/MENTHOL (CHLORASEPTIC ) LOZENGE MM PRN (22:04)
[2022-10-15] MEDS ORDERED: hydrOXYzine PAMOATE 25 MG CAPSULE (FP) PO PRN (22:04)
[2022-10-15] MEDS ORDERED: MAGNESIUM HYDROX 2400MG/30ML ORAL SUSPENSION 30 ML CUP PO PRN (22:04)
[2022-10-15] MEDS ORDERED: LOPERAMIDE HCL 2 MG CAPSULE PO PRN (22:04)
[2022-10-15] MEDS ORDERED: BENZONATATE 200 MG CAPSULE PO PRN (22:04)
[2022-10-15] MEDS ORDERED: NICOTINE POLACRILEX 2 MG GUM BUC PRN (22:04)
[2022-10-15] MEDS ORDERED: NALOXONE HCL 0.4 MG/ML VIAL IM PRN (22:04)
[2022-10-15] MEDS ORDERED: ACETAMINOPHEN 325 MG TABLET (FP) PO PRN (22:04)
[2022-10-15] MEDS ORDERED: NALOXONE HCL (KLOXXADO) 8 MG SPRAY NS PRN (22:04)
[2022-10-15] MEDS ORDERED: POLYETHYLENE GLYCOL (HEALTHYLAX) 3350 17 GM PACKET PO PRN (22:04)
[2022-10-15] MEDS ORDERED: ONDANSETRON *ODT* 4 MG TABLET SL PRN (22:04)
[2022-10-15] MEDS ORDERED: METHOCARBAMOL 500 MG TABLET PO PRN (22:04)
[2022-10-15] MEDS ORDERED: guaiFENesin 600 MG TABLET.ER (FP) PO PRN (22:04)
[2022-10-15] MEDS ORDERED: P-EPHED 60MG/TRIPROLIDI 2.5MG TABLET PO PRN (22:04)
[2022-10-15] MEDS ORDERED: MAG HYDROX/AL HYDROX/SIMETH 30 ML UNIT-DOSE CUP PO PRN (22:04)
[2022-10-15] MEDS ORDERED: IBUPROFEN 400 MG TABLET (FP) PO PRN (22:04)
[2022-10-15] MEDS ORDERED: IBUPROFEN 600 MG TABLET (FP) PO PRN (22:04)
[2022-10-15] MEDS ORDERED: chlordiazePOXIDE HCL 25 MG CAPSULE PO PRN (22:06)
[2022-10-15] MEDS ORDERED: LORazepam 2 MG/ML SDV VIAL IM ONE (22:15)
[2022-10-15] MEDS ORDERED: chlordiazePOXIDE HCL 25 MG CAPSULE ONE (23:43)
[2022-10-15] MEDS: LACOSAMIDE 50 MG TABLET PO SCH (23:47)
[2022-10-15] MEDS: chlordiazePOXIDE HCL 25 MG CAPSULE PO SCH (23:47)
[2022-10-16] MEDS: chlordiazePOXIDE HCL 25 MG CAPSULE PO SCH ×4 (05:52→22:18)
[2022-10-16 10:15] LABS: HEMATOCRIT 42.4 % (35.4-49); HEMOGLOBIN 14.4 GM/dL (11.7-16.9); MCH 28.8 pg (25.7-33.7); MEAN CELL VOLUME 84.5 fl (80-96); MEAN PLT VOLUME 7.5 fl (7.5-11.1); PLATELET COUNT 119 10^3/uL (134-434); RBC 5.02 M/mm3 (4.00-5.60); RDW 17.4 % (11.9-15.9); WHITE BLOOD COUNT 2.7 K/mm3 (4.0-10.0)
[2022-10-16] MEDS: LACOSAMIDE 50 MG TABLET PO SCH ×2 (10:15→22:18)
[2022-10-16] MEDS: PRENATAL VITAMINS W/ FOLIC ACID TABLET (FP) PO SCH (10:15)
[2022-10-16 10:31] LABS: POTASSIUM 3.6 mmol/L (3.5-5.1)
[2022-10-16] MEDS: methaDONE HCL 40 MG DISPERSABLE TABLET PO SCH (10:38)
[2022-10-16 10:40] LABS: CALCIUM 8.8 mg/dL (8.5-10.1)
[2022-10-16 10:41] LABS: ALBUMIN 3.9 g/dl (3.4-5.0); BLOOD UREA NITROGEN 12.3 mg/dL (7-18)
[2022-10-16 10:44] LABS: CREATININE 0.6 mg/dL (0.55-1.3)
[2022-10-16 10:45] LABS: BILIRUBIN,TOTAL 0.5 mg/dL (0.2-1)
[2022-10-16] MEDS ORDERED: MELATONIN 5 MG TABLETS PO SCH (22:00)
[2022-10-16] MEDS ORDERED: THIAMINE HCL 100 MG TABLET (FP) PO SCH (22:00)
[2022-10-17] MEDS: methaDONE HCL 40 MG DISPERSABLE TABLET PO SCH (05:41)
[2022-10-17] MEDS: chlordiazePOXIDE HCL 25 MG CAPSULE PO SCH ×3 (05:42→17:09)
[2022-10-17 06:04] VITALS: RESP 18
[2022-10-17] MEDS: PRENATAL VITAMINS W/ FOLIC ACID TABLET (FP) PO SCH (10:23)
[2022-10-17] MEDS: LACOSAMIDE 50 MG TABLET PO SCH (10:23)
[2022-10-17 17:11] VITALS: BP 102/69; PULSE 66; TEMP 97.9
[2022-10-18] MEDS ORDERED: chlordiazePOXIDE HCL 10 MG CAPSULE PO PRN
[2022-10-18] MEDS ORDERED: chlordiazePOXIDE HCL 10 MG CAPSULE PO SCH (05:00)
[2022-10-19] MEDS ORDERED: chlordiazePOXIDE HCL 10 MG CAPSULE PO SCH (05:00)
[2022-10-20] MEDS ORDERED: chlordiazePOXIDE HCL 10 MG CAPSULE PO ONE (05:00)
== END 2022-10-17 17:40 | disposition left against medical advice (07) | DRG 770 ==
LOC: YASAS 15:29 → Y3N 22:13
PROVIDERS: ADMIT Allergy & Immunology; ATTEND Allergy & Immunology
PROC: HZ2ZZZZ Detoxification Services for Substance Abuse Treatment (ICD-10-PCS; principal; 2022-10-15)
DX: F10.230 Alcohol dependence with withdrawal, uncomplicated (principal); F11.20 Opioid dependence, uncomplicated; F12.20 Cannabis dependence, uncomplicated; F17.210 Nicotine dependence, cigarettes, uncomplicated; F19.24 Other psychoactive substance dependence with psychoactive substance-induced mood disorder; F20.9 Schizophrenia, unspecified; G40.909 Epilepsy, unspecified, not intractable, without status epilepticus; K21.9 Gastro-esophageal reflux disease without esophagitis; B18.2 Chronic viral hepatitis C; Z56.0 Unemployment, unspecified; Z59.01 Sheltered homelessness; Z91.199 Patient's noncompliance with other medical treatment and regimen due to unspecified reason; Z88.8 Allergy status to other drugs, medicaments and biological substances
CPT/HCPCS: 36415; 73110-TC-LT-FY; 73130-TC-LT-FY; 80053; 85027; 86780; 87635; 99281-25

== ENCOUNTER 2022-11-08 09:29 | Inpatient (IN) | payer OTHER ==
[2022-11-08 11:17] VITALS: BMI 25.8
[2022-11-08] MEDS ORDERED: NICOTINE POLACRILEX 2 MG GUM BUC PRN (11:26)
[2022-11-08] MEDS ORDERED: LOPERAMIDE HCL 2 MG CAPSULE PO PRN (11:26)
[2022-11-08] MEDS ORDERED: NALOXONE HCL (KLOXXADO) 8 MG SPRAY NS PRN (11:26)
[2022-11-08] MEDS ORDERED: ACETAMINOPHEN 325 MG TABLET (FP) PO PRN (11:26)
[2022-11-08] MEDS ORDERED: IBUPROFEN 600 MG TABLET (FP) PO PRN (11:26)
[2022-11-08] MEDS ORDERED: IBUPROFEN 400 MG TABLET (FP) PO PRN (11:26)
[2022-11-08] MEDS ORDERED: guaiFENesin 600 MG TABLET.ER (FP) PO PRN (11:26)
[2022-11-08] MEDS ORDERED: BISMUTH SUBSALICYLATE 524 MG/30 ML PO PRN (11:26)
[2022-11-08] MEDS ORDERED: NALOXONE HCL 0.4 MG/ML VIAL IM PRN (11:26)
[2022-11-08] MEDS ORDERED: POLYETHYLENE GLYCOL (HEALTHYLAX) 3350 17 GM PACKET PO PRN (11:26)
[2022-11-08] MEDS ORDERED: ONDANSETRON *ODT* 4 MG TABLET SL PRN (11:26)
[2022-11-08] MEDS ORDERED: BENZONATATE 200 MG CAPSULE PO PRN (11:26)
[2022-11-08] MEDS ORDERED: BENZOCAINE/MENTHOL (CHLORASEPTIC ) LOZENGE MM PRN (11:26)
[2022-11-08] MEDS ORDERED: MAGNESIUM HYDROX 2400MG/30ML ORAL SUSPENSION 30 ML CUP PO PRN (11:26)
[2022-11-08] MEDS ORDERED: DICYCLOMINE HCL 10 MG CAPSULE PO PRN (11:26)
[2022-11-08] MEDS ORDERED: MAG HYDROX/AL HYDROX/SIMETH 30 ML UNIT-DOSE CUP PO PRN (11:26)
[2022-11-08] MEDS ORDERED: TRIMETHOBENZAMIDE HCL 200MG/2ML INJ IM ONE (12:30)
[2022-11-08] MEDS: PRENATAL VITAMINS W/ FOLIC ACID TABLET (FP) PO SCH (13:23)
[2022-11-08] MEDS: diazePAM 5 MG TABLET PO SCH ×3 (13:24→22:37)
[2022-11-08] MEDS ORDERED: diazePAM 5 MG TABLET ONE (13:25)
[2022-11-08] MEDS ORDERED: methaDONE HCL 10 MG TABLET PO SCH (14:00)
[2022-11-08] MEDS ORDERED: methaDONE 40 MG, methaDONE 30 MG PO ONE (16:00)
[2022-11-08] MEDS: diazePAM 5 MG TABLET PO PRN (19:39)
[2022-11-08] MEDS: THIAMINE HCL 100 MG TABLET (FP) PO SCH (22:37)
[2022-11-08] MEDS: MELATONIN 5 MG TABLETS PO SCH (22:37)
[2022-11-08] MEDS: METHOCARBAMOL 500 MG TABLET PO PRN (22:39)
[2022-11-09] MEDS: diazePAM 5 MG TABLET PO PRN ×3 (01:55→19:15)
[2022-11-09] MEDS: diazePAM 5 MG TABLET PO SCH ×4 (05:36→22:52)
[2022-11-09] MEDS: methaDONE 40 MG, methaDONE 30 MG PO SCH (05:37)
[2022-11-09 06:55] LABS: POTASSIUM 3.9 mmol/L (3.5-5.1)
[2022-11-09 06:57] LABS: CALCIUM 9.5 mg/dL (8.5-10.1); HEMATOCRIT 44.1 % (35.4-49); HEMOGLOBIN 14.8 GM/dL (11.7-16.9); MCH 28.6 pg (25.7-33.7); MCHC 33.6 g/dl (32.0-35.9); MEAN CELL VOLUME 85.3 fl (80-96); MEAN PLT VOLUME 8.5 fl (7.5-11.1); PLATELET COUNT 149 10^3/uL (134-434); RBC 5.16 M/mm3 (4.00-5.60); WHITE BLOOD COUNT 3.9 K/mm3 (4.0-10.0)
[2022-11-09 06:58] LABS: ALBUMIN 4.4 g/dl (3.4-5.0); BLOOD UREA NITROGEN 20.6 mg/dL (7-18)
[2022-11-09 07:01] LABS: CREATININE 0.8 mg/dL (0.55-1.3)
[2022-11-09 07:02] LABS: BILIRUBIN,TOTAL 1.3 mg/dL (0.2-1); TOT PROT 8.8 g/dl (6.4-8.2)
[2022-11-09] MEDS: PRENATAL VITAMINS W/ FOLIC ACID TABLET (FP) PO SCH (10:14)
[2022-11-09] MEDS: hydrOXYzine PAMOATE 25 MG CAPSULE (FP) PO PRN ×2 (13:29→22:53)
[2022-11-09] MEDS: MELATONIN 5 MG TABLETS PO SCH (22:50)
[2022-11-09] MEDS: THIAMINE HCL 100 MG TABLET (FP) PO SCH (22:50)
[2022-11-09] MEDS: METHOCARBAMOL 500 MG TABLET PO PRN (23:44)
[2022-11-10] MEDS: methaDONE 40 MG, methaDONE 30 MG PO SCH (06:16)
[2022-11-10] MEDS: diazePAM 5 MG TABLET PO SCH ×3 (06:19→22:30)
[2022-11-10] MEDS: PRENATAL VITAMINS W/ FOLIC ACID TABLET (FP) PO SCH (10:27)
[2022-11-10] MEDS: LACOSAMIDE 50 MG TABLET PO SCH ×2 (10:28→22:29)
[2022-11-10] MEDS: diazePAM 5 MG TABLET PO PRN ×2 (10:29→17:06)
[2022-11-10] MEDS: METHOCARBAMOL 500 MG TABLET PO PRN (10:30)
[2022-11-10] MEDS: THIAMINE HCL 100 MG TABLET (FP) PO SCH (22:29)
[2022-11-10] MEDS: MELATONIN 5 MG TABLETS PO SCH (22:29)
[2022-11-11] MEDS: hydrOXYzine PAMOATE 25 MG CAPSULE (FP) PO PRN (04:37)
[2022-11-11] MEDS: diazePAM 5 MG TABLET PO PRN ×2 (04:37→07:46)
[2022-11-11] MEDS: methaDONE 40 MG, methaDONE 30 MG PO SCH (05:28)
[2022-11-11] MEDS ORDERED: diazePAM 5 MG TABLET PO SCH (06:00)
[2022-11-11 06:11] VITALS: RESP 18
[2022-11-11 09:05] VITALS: BP 139/86; PULSE 95; TEMP 98.8
[2022-11-11] MEDS: PRENATAL VITAMINS W/ FOLIC ACID TABLET (FP) PO SCH (10:41)
[2022-11-11] MEDS: LACOSAMIDE 50 MG TABLET PO SCH (10:41)
[2022-11-12] MEDS ORDERED: diazePAM 5 MG TABLET PO ONE (06:00)
== END 2022-11-11 09:20 | disposition home or self-care (01) | DRG 773 ==
LOC: YASAS 09:29 → Y3N 14:05
PROVIDERS: ADMIT Allergy & Immunology; ATTEND Surgery
PROC: HZ2ZZZZ Detoxification Services for Substance Abuse Treatment (ICD-10-PCS; principal; 2022-11-08)
DX: F10.230 Alcohol dependence with withdrawal, uncomplicated (principal); F11.20 Opioid dependence, uncomplicated; F12.20 Cannabis dependence, uncomplicated; F17.210 Nicotine dependence, cigarettes, uncomplicated; F31.9 Bipolar disorder, unspecified; F20.9 Schizophrenia, unspecified; G40.409 Other generalized epilepsy and epileptic syndromes, not intractable, without status epilepticus; Z87.828 Personal history of other (healed) physical injury and trauma; Z59.01 Sheltered homelessness; Z88.8 Allergy status to other drugs, medicaments and biological substances
CPT/HCPCS: 36415; 80053; 82140; 82962; 85027; 86780; 87635; Q0162

== ENCOUNTER 2022-11-10 03:16 | Emergency (ER) | payer OTHER ==
[2022-11-10 03:22] VITALS: BP 140/82; PULSE 62; RESP 18; TEMP 97.6; BMI 25.8
[2022-11-10] MEDS ORDERED: Lacosamide 200 MG/20 ML VIAL IVPB ONE ×2 (03:32→03:42)
[2022-11-10] MEDS ORDERED: diazePAM CARPU-JECT 10 MG/2 ML DISP.SYRIN IVPUSH ONE (03:32)
[2022-11-10] MEDS ORDERED: diazePAM CARPU-JECT 10 MG/2 ML DISP.SYRIN ONE (03:42)
[2022-11-10 05:25] LABS: INR 1.07 (0.83-1.09); PROTHROMBIN TIME (PATIENT) 12.4 SEC (9.7-13.0)
[2022-11-10 05:27] LABS: ACTIVATED PTT 31.4 SECONDS (25.2-36.5)
[2022-11-10 05:33] LABS: BASO % 0.5 % (0-2.0); EOS % 0.3 % (0-4.5); HEMATOCRIT 46.4 % (35.4-49); HEMOGLOBIN 15.5 GM/dL (11.7-16.9); LYMPH % 33.5 % (8-40); MCH 28.7 pg (25.7-33.7); MCHC 33.4 g/dl (32.0-35.9); MEAN PLT VOLUME 8.7 fl (7.5-11.1); NEUT % 56.7 % (42.8-82.8); PLATELET COUNT 159 10^3/uL (134-434); RDW 16.8 % (11.9-15.9); WHITE BLOOD COUNT 4.5 K/mm3 (4.0-10.0)
[2022-11-10 05:34] LABS: POTASSIUM 3.6 mmol/L (3.5-5.1)
[2022-11-10 05:36] LABS: CALCIUM 10.1 mg/dL (8.5-10.1)
[2022-11-10 05:37] LABS: ALBUMIN 4.6 g/dl (3.4-5.0); BLOOD UREA NITROGEN 10.2 mg/dL (7-18)
[2022-11-10 05:39] LABS: CREATININE 0.8 mg/dL (0.55-1.3)
[2022-11-10 05:41] LABS: BILIRUBIN,TOTAL 0.9 mg/dL (0.2-1)
[2022-11-10 05:47] LABS: LACTIC ACID 3.1 mmol/L (0.4-2.0)
[2022-11-10] MEDS ORDERED: ONDANSETRON *ODT* 4 MG TABLET ONE (05:51)
== END 2022-11-10 06:12 | disposition home or self-care (01) ==
LOC: JER 03:16
PROC: 3E033NZ Introduction of Analgesics, Hypnotics, Sedatives into Peripheral Vein, Percutaneous Approach (ICD-10-PCS; principal; 2022-11-10)
DX: G40.909 Epilepsy, unspecified, not intractable, without status epilepticus (principal); F10.20 Alcohol dependence, uncomplicated; Z91.14 Patient's other noncompliance with medication regimen
CPT/HCPCS: 36415; 80053; 82550; 82553; 83605; 83735; 84484; 85025; 85610; 85730; 93005; 93010; 99285-25

== ENCOUNTER 2023-10-14 14:38 | Inpatient (IN) | payer OTHER ==
[2023-10-14 15:42] VITALS: BMI 23.8
[2023-10-14] MEDS ORDERED: NICOTINE POLACRILEX 2 MG GUM BUC PRN (16:01)
[2023-10-14] MEDS ORDERED: ACETAMINOPHEN 325 MG TABLET (FP) PO PRN (16:01)
[2023-10-14] MEDS ORDERED: ONDANSETRON *ODT* 4 MG TABLET SL PRN (16:01)
[2023-10-14] MEDS ORDERED: POLYETHYLENE GLYCOL (HEALTHYLAX) 3350 17 GM PACKET PO PRN (16:01)
[2023-10-14] MEDS ORDERED: NICOTINE POLACRILEX 2 MG LOZENGE BC PRN (16:01)
[2023-10-14] MEDS ORDERED: guaiFENesin 600 MG TABLET.ER (FP) PO PRN (16:01)
[2023-10-14] MEDS ORDERED: BENZONATATE 200 MG CAPSULE PO PRN (16:01)
[2023-10-14] MEDS ORDERED: MAG HYDROX/AL HYDROX/SIMETH 30 ML UNIT-DOSE CUP PO PRN (16:01)
[2023-10-14] MEDS ORDERED: DICYCLOMINE HCL 10 MG CAPSULE PO PRN (16:01)
[2023-10-14] MEDS ORDERED: BENZOCAINE/MENTHOL (CHLORASEPTIC ) LOZENGE MM PRN (16:01)
[2023-10-14] MEDS ORDERED: BISMUTH SUBSALICYLATE 524 MG/30 ML PO PRN (16:01)
[2023-10-14] MEDS ORDERED: LOPERAMIDE HCL 2 MG CAPSULE PO PRN (16:01)
[2023-10-14] MEDS ORDERED: IBUPROFEN 400 MG TABLET (FP) PO PRN (16:01)
[2023-10-14] MEDS ORDERED: chlordiazePOXIDE HCL 25 MG CAPSULE ONE (17:12)
[2023-10-14] MEDS: chlordiazePOXIDE HCL 25 MG CAPSULE PO SCH (17:14)
[2023-10-14] MEDS: hydrOXYzine PAMOATE 25 MG CAPSULE (FP) PO PRN (17:58)
[2023-10-14] MEDS: chlordiazePOXIDE HCL 25 MG CAPSULE PO PRN (19:46)
[2023-10-14] MEDS: METHOCARBAMOL 500 MG TABLET PO PRN (20:06)
[2023-10-14] MEDS: THIAMINE 100 MG TABLET PO SCH (22:23)
[2023-10-14] MEDS: LACOSAMIDE 50 MG TABLET PO SCH (22:23)
[2023-10-14] MEDS: MELATONIN 5 MG TABLETS PO SCH (22:23)
[2023-10-15] MEDS: IBUPROFEN 600 MG TABLET (FP) PO PRN (06:56)
[2023-10-15] MEDS ORDERED: methaDONE HCL 10 MG TABLET PO SCH (08:15)
[2023-10-15] MEDS: methaDONE 40 MG, methaDONE 20 MG PO SCH (09:23)
[2023-10-15] MEDS: PRENATAL VITAMINS W/ FOLIC ACID TABLET (FP) PO SCH (09:25)
[2023-10-15] MEDS: GABAPENTIN 300 MG CAPSULE PO SCH (09:25)
[2023-10-15 11:40] LABS: HEMATOCRIT 39.8 % (35.4-49); HEMOGLOBIN 13.5 GM/dL (11.7-16.9); MCH 32.7 pg (25.7-33.7); MCHC 33.9 g/dl (32.0-35.9); MEAN CELL VOLUME 96.5 fl (80-96); MEAN PLT VOLUME 7.9 fl (7.5-11.1); PLATELET COUNT 133 10^3/uL (134-434); RBC 4.13 M/mm3 (4.00-5.60); WHITE BLOOD COUNT 2.5 K/mm3 (4.0-10.0)
[2023-10-15 11:54] LABS: POTASSIUM 3.3 mmol/L (3.5-5.1)
[2023-10-15 11:56] LABS: CALCIUM 9.3 mg/dL (8.5-10.1)
[2023-10-15 11:57] LABS: ALBUMIN 3.7 g/dl (3.4-5.0); BLOOD UREA NITROGEN 9.8 mg/dL (7-18)
[2023-10-15 12:00] LABS: CREATININE 0.7 mg/dL (0.55-1.3)
[2023-10-15 12:01] LABS: BILIRUBIN,TOTAL 0.7 mg/dL (0.2-1); TOT PROT 7.1 g/dl (6.4-8.2)
[2023-10-15] MEDS: LIDOCAINE 5% TOPICAL PATCH TP SCH (15:32)
[2023-10-15] MEDS: LIDOCAINE PATCH REMOVAL MC SCH (22:02)
[2023-10-16] MEDS: chlordiazePOXIDE HCL 25 MG CAPSULE PO SCH (05:55)
[2023-10-16] MEDS: METHYL SALICYLATE/MENTHOL 30 GM TUBE TP SCH (22:05)
[2023-10-17] MEDS: chlordiazePOXIDE HCL 10 MG CAPSULE PO PRN (01:52)
[2023-10-17] MEDS: chlordiazePOXIDE HCL 10 MG CAPSULE PO SCH (05:55)
[2023-10-17] MEDS ORDERED: METHYL SALICYLATE/MENTHOL 30 GM TUBE TP SCH (10:00)
[2023-10-17] MEDS: POTASSIUM CHLORIDE ORAL LIQUID 20 MEQ/15 ML PO ONE (15:38)
[2023-10-17] MEDS: MAGNESIUM HYDROX 2400MG/30ML ORAL SUSPENSION 30 ML CUP PO PRN (19:03)
[2023-10-17] MEDS: POTASSIUM CHLORIDE ORAL LIQUID 20 MEQ/15 ML PO SCH (22:13)
[2023-10-18] MEDS: chlordiazePOXIDE HCL 10 MG CAPSULE PO SCH (05:55)
[2023-10-18] MEDS: GABAPENTIN 300 MG CAPSULE PO SCH (13:44)
[2023-10-18] MEDS: CALCIUM 500MG/VIT-D 200 UNITS COMBO TABLET (FP) PO SCH (13:44)
[2023-10-18] MEDS: chlordiazePOXIDE HCL 10 MG CAPSULE PO PRN (13:45)
[2023-10-18] MEDS ORDERED: QUEtiapine FUMARATE 50 MG TABLET PO SCH (22:00)
[2023-10-18] MEDS: QUEtiapine FUMARATE 100 MG TABLET (FP) PO SCH (22:09)
[2023-10-19] MEDS ORDERED: chlordiazePOXIDE HCL 10 MG CAPSULE PO ONE (05:00)
[2023-10-19] MEDS: cloNIDine HCL 0.1 MG TABLET PO PRN (17:10)
[2023-10-20] MEDS: chlordiazePOXIDE HCL 10 MG CAPSULE PO ONE (05:18)
[2023-10-20 09:17] VITALS: BP 106/57; PULSE 82; RESP 16; TEMP 97.5
== END 2023-10-20 12:56 | disposition home or self-care (01) | DRG 773 ==
LOC: YASAS 14:38 → Y3N 17:15
PROVIDERS: ADMIT Allergy & Immunology; ATTEND Psychiatry & Neurology Pain Medicine
PROC: HZ2ZZZZ Detoxification Services for Substance Abuse Treatment (ICD-10-PCS; principal; 2023-10-14)
DX: F10.230 Alcohol dependence with withdrawal, uncomplicated (principal); F10.220 Alcohol dependence with intoxication, uncomplicated; F11.20 Opioid dependence, uncomplicated; F12.20 Cannabis dependence, uncomplicated; F17.210 Nicotine dependence, cigarettes, uncomplicated; F19.94 Other psychoactive substance use, unspecified with psychoactive substance-induced mood disorder; F31.9 Bipolar disorder, unspecified; G40.909 Epilepsy, unspecified, not intractable, without status epilepticus; G47.00 Insomnia, unspecified; G62.89 Other specified polyneuropathies; M54.59 Other low back pain; G89.29 Other chronic pain; E87.6 Hypokalemia; K21.9 Gastro-esophageal reflux disease without esophagitis; B18.2 Chronic viral hepatitis C; M25.571 Pain in right ankle and joints of right foot; R00.0 Tachycardia, unspecified; R26.2 Difficulty in walking, not elsewhere classified; Z99.89 Dependence on other enabling machines and devices; Z88.8 Allergy status to other drugs, medicaments and biological substances; Z87.828 Personal history of other (healed) physical injury and trauma; Z91.51 Personal history of suicidal behavior; Z56.0 Unemployment, unspecified; Z59.01 Sheltered homelessness
CPT/HCPCS: 36415; 73610-TC-RT-FY; 80053; 80305; 80307; 84132; 85027; 86780